=== PATIENT | female | born 1960 | race Caucasian/White ===

== ENCOUNTER → 2020-08-06 13:07 | Outpatient (CLI) | payer OTHER, SELFPAY ==
--- NOTE | ~2020-08-06 | CT_ITS ---
EXAMINATION: CT lumbar spine wo [facility] EXAM DATE: 08/06/2020 13:35 INDICATION: Low back pain. TECHNIQUE: Spiral CT of the lumbar spine was performed without contrast. Axial, coronal and sagittal images were reviewed. The dose-length product (DLP) for this examination was 952.88 mGy-cm. The e xposure was tailored according to patient size (auto mA exposure control), and iterative reconstructi on (ASIR) was used as additional dose reduction technique. There is no prior study for comparison. FINDINGS: There is no spondylolysis. The vertebral bodies are aligned in the AP dimension. Mild diffu se lumbar disc disease. There are no osteoblastic or osteolytic lesions identified. There are no acut e fractures identified. Mild sigmoid diverticulosis. Level by level evaluation: T11-12: Disc does not extend beyond the endplate margin. Facet arthropathy: None. Neural foraminal stenosis: No stenosis. Central canal stenosis: No stenosis. T12-L1: Disc does not extend beyond the endplate margin. Facet arthropathy: Mild. Neural foraminal stenosis: No stenosis. Central canal stenosis: No stenosis. L1-L2: There is a minimal diffuse disc bulge. Facet arthropathy: Mild to moderate. Neural foraminal stenosis: No stenosis. Central canal stenosis: No stenosis. L2-L3: There is a mild diffuse disc bulge. Facet arthropathy: Mild to moderate. Neural foraminal stenosis: No stenosis. Central canal stenosis: No stenosis. L3-L4: There is a mild to moderate diffuse disc bulge. Facet arthropathy: Moderate to severe, mild ligamentum flavum hypertrophy. Neural foraminal stenosis: Mild left. Central canal stenosis: Moderate. L4-L5: There is a mild diffuse disc bulge. Facet arthropathy: Severe right, moderate left. Neural foraminal stenosis: Mild to moderate right, mild left. Central canal stenosis: Mild to moderate. L5-S1: Disc does not extend beyond the endplate margin. Facet arthropathy: Severe left, moderate right. Neural foraminal stenosis: Moderate bilateral. Central canal stenosis: No stenosis. IMPRESSION: 1. Multilevel spondylosis with central canal most narrowed at L3-4. 2. Advanced lower lumbar facet arthropathy. 3. No acute findings. Reviewed, dictated and finalized at location A. LOPMENT VICE PRESIDENT
== END ==
PROVIDERS: PCP Family Medicine; Visit Provider Family Medicine
DX: M47.896 Other spondylosis, lumbar region (principal)
CPT/HCPCS: 72131

== ENCOUNTER → 2021-10-15 15:43 | Outpatient (CLI) | payer OTHER, SELFPAY ==
--- NOTE | ~2021-10-15 | MM_ITS ---
EXAMINATION: MM screening ford BI w amari HISTORY: Screening mammogram TECHNIQUE: Craniocaudal and mediolateral oblique 3-D tomosynthesis images were obtained and synthetic 2-D images were generated. Bilateral rotated lateral CC views. Low CAD analysis was submitted and interpreted. COMPARISON: No prior mammogram is available for comparison at this institution. BREAST PARENCHYMAL COMPOSITION: The breasts are almost entirely fatty. FINDINGS: Scattered bilateral benign calcifications. There is no evidence of suspicious mass, calcifi cation, or architectural distortion to suggest malignancy in either breast. There has been no suspici ous interval change. IMPRESSION: 1. No mammographic evidence of malignancy. 2. Recommend routine screening mammography in one year. Benign Reviewed, dictated and finalized at location A.
== END ==
PROVIDERS: PCP Family Medicine; Visit Provider Family Medicine
DX: Z12.31 Encounter for screening mammogram for malignant neoplasm of breast (principal)
CPT/HCPCS: 77063; 77067

== ENCOUNTER 2022-08-03 14:08 | Emergency (ER) | payer OTHER, SELFPAY ==
--- NOTE | ~2022-08-03 | US_ITS ---
EXAMINATION: US venous doppler [facility] DATE: 08/03/2022 14:59 INDICATION: Left lower limb pain TECHNIQUE: Dykes scale images without and with compression and Doppler images of the left lower extrem ity veins were obtained. COMPARISON: 09/18/2018 FINDINGS: The left common femoral vein, profunda femoral vein, femoral vein, popliteal vein, peroneal trunk, posterior tibial veins, and greater saphenous vein are patent. IMPRESSION: 1. Patent left lower extremity veins. No evidence of deep venous thrombosis. Reviewed, dictated and finalized at location B. DIPPER
[2022-08-03 14:19] VITALS: BP 158/73; PULSE 81; RESP 14; TEMP 36.4; O2SAT 96
[2022-08-03 15:06] VITALS: BP 180/87; PULSE 72; RESP 18; O2SAT 95
--- NOTE | 2022-08-03 15:11 | ED.EXTPRO ---
HPI - Extremity Problem General Chief complaint: Extremity Problem,Nontraumatic Stated complaint: left leg pain Time Seen by Provider: 08/03/22 14:33 Source: patient Mode of arrival: wheelchair Limitations: no limitations History of Present Illness HPI Narrative: This is a 62-year-old female that presents to the emergency department for left knee pain ongoing over the last several months. No recent injury or trauma. Reports the pain is in the knee and radiates down the leg. She has been seen by orthopedics for this and had x-rays of the knee. Told her pain was due to arthritis. Reports history of DVT and she has noticed some swelling in the lower leg which prompted her to be seen today. Denies fevers, erythema, decreased range of motion, or numbness. Related Data Allergies Allergy/AdvReac Type Severity Reaction Status Date / Time acetaminophen AdvReac Unknown Vomiting Verified 08/28/19 12:48 hydrocodone AdvReac Unknown Vomiting Verified 08/28/19 12:48 hydromorphone AdvReac Unknown Vomiting Verified 08/28/19 12:48 Contrast Media Allergy Unknown HIVES Uncoded 08/28/19 12:48 Review of Systems Review of Systems: CONSTITUTIONAL: Denies fever SKIN: Denies rash or erythema MUSCULOSKELETAL: Reports joint pain, and myalgia. NEUROLOGIC: Denies numbness, or weakness. All systems reviewed & are unremarkable except as noted in HPI and below PMFSH Past Medical History Medical History (Updated 08/03/22 @ 15:15 by Nayeli Shah PA-C) History of diabetes mellitus History of gastroesophageal reflux (GERD) History of hypertension Social History Social History (Updated 08/03/22 @ 15:15 by Nayeli Shah PA-C) Substance use: never Exam Narrative: GENERAL: Well-appearing, well-nourished, and in no acute distress. HEAD: Normocephalic, atraumatic. EYES: EOMI. CHEST: Clear to auscultation. No respiratory distress. No wheezes rales or rhonchi HEART: Regular rate and rhythm. No murmur heard. Normal peripheral pulses. EXTREMITIES: Normal range of motion. Mild, nonpitting edema to the left lower leg. Normal DP pulse. Normal sensation. No erythema or warmth of the leg SKIN: Warm, dry, no rash. NEURO: No focal deficits. Alert and oriented x3. PSYCH: Normal mood and affect Course Course Emergency Course: Patient and family updated on workup. Instructed to have continued workup who orthopedics and her PCP Vital Signs Vital signs: Vital Signs Temperature 97.6 F 08/03/22 14:19 Pulse Rate 81 08/03/22 14:19 Respiratory Rate 14 08/03/22 14:19 Blood Pressure 158/73 H 08/03/22 14:19 Pulse Oximetry 96 08/03/22 14:19 Oxygen Delivery Room Air 08/03/22 14:19 Temperature 97.6 F 08/03/22 14:19 Pulse Rate 72 08/03/22 15:06 Respiratory Rate 18 08/03/22 15:06 Blood Pressure 180/87 H 08/03/22 15:06 Pulse Oximetry 95 08/03/22 15:06 Oxygen Delivery Room Air 08/03/22 14:19 MDM - Extremity (Nontraumatic) MDM Narrative Medical decision making narrative: Patient presents to the emergency department for left knee pain radiating into the lower leg ongoing over the last several months. Patient is neurovascularly intact. There is no erythema or warmth of the leg. She is afebrile and nontoxic-appearing. She has normal range of motion. Patient reported history of DVT which prompted her to be seen today. Left lower extremity venous Doppler without evidence of DVT. Patient was instructed to have continued follow-up with her primary doctor and orthopedics. She was given warnings to return to the ER Patient incidentally noted to be hypertensive. Has known history of hypertension and is treated for this. Patient is asymptomatic. Is to follow up with PCP for this as well Imaging Data Radiologist's impression: ITS Impressions Venous Doppler Study 08/03/22 15:01 IMPRESSION: 1. Patent left lower extremity veins. No evidence of deep venous thrombosis. Critical Care Time Crit
== END 2022-08-03 16:10 | disposition home or self-care (01) ==
PROVIDERS: Emergency Provider Physician Assistant; PCP Family Medicine
DX: M25.562 Pain in left knee (principal); G89.29 Other chronic pain; E11.9 Type 2 diabetes mellitus without complications; K21.9 Gastro-esophageal reflux disease without esophagitis; I10 Essential (primary) hypertension
CPT/HCPCS: 93971; 99284

== ENCOUNTER 2022-10-18 14:32 | Outpatient (CLI) | payer MEDICARE, OTHER, SELFPAY ==
[2022-10-18 16:05] LABS: Basophils Absolute Auto 0.1 K/mm3 (0.0-0.1); Eosinophils Absolute Auto 0.3 K/mm3 (0-0.3); Eosinophils Percent Auto 3.5 % (0-4.4); Hematocrit 43.7 % (37.0-47.0); Hemoglobin 14.5 g/dL (12.0-15.0); Immature Granulocyte Absolute 0.13 K/mm3 (0.00-0.031); Immature Granulocyte Percent A 1.4 % (0-0.5); Lymphocytes Absolute Auto 2.77 K/mm3 (0.9-3.2); Lymphocytes Percent Auto 29.4 % (18.3-44.2); Mean Corpuscular HGB Conc 33.2 g/dl (32-36); Mean Corpuscular Hemoglobin 27.7 pg (26-34); Mean Corpuscular Volume 83.6 fl (80-100); Mean Platelet Volume 10.4 fl (7.4-10.4); Monocytes Absolute Auto 0.8 K/mm3 (0.1-0.6); Monocytes Percent Auto 8.9 % (2.6-8.5); Neutrophils Absolute Auto 5.3 K/mm3 (1.3-6.7); Neutrophils Percent Auto 55.8 % (45.5-73.1); Platelet Count Result 274 k/mm3 (150-375); Red Blood Count 5.23 M/mm3 (4.2-5.4); Red Cell Distribution Width 15.2 % (11.5-14.5); White Blood Count 9.4 K/mm3 (4.5-10.0)
[2022-10-18 17:03] LABS: Alanine Aminotransferase 47 U/L (6-35); Albumin Level 4.5 g/dL (3.5-5.1); Alkaline Phosphatase 107 U/L (38-126); Anion Gap 9 mmol/L (8-16); Aspartate Amino Transferase 45 U/L (14-36); Bilirubin,Total 0.7 mg/dL (0.2-1.3); Blood Urea Nitrogen 23 mg/dL (7-17); CRP 1.7 mg/dL (<1.0); Calcium 9.5 mg/dL (8.4-10.2); Carbon Dioxide 27 mmol/L (22-30); Chloride 104 mmol/L (98-107); Estimated Glomerular Filt Rate 50; Glucose 142 mg/dL (65-110); Potassium 4.3 mmol/L (3.4-5.0); Sodium 140 mmol/L (137-145)
[2022-10-18 17:50] LABS: Erythrocyte Sedimentation Rate 14 mm/hr (0-20)
== END 2022-10-18 14:33 | disposition home or self-care (01) ==
LOC: ANHLAB 14:36
PROVIDERS: PCP Family Medicine; Visit Provider Internal Medicine Hematology & Oncology
DX: D72.829 Elevated white blood cell count, unspecified (principal)
CPT/HCPCS: 36415; 80053; 85025; 85652; 86140; 88184; 88185

== ENCOUNTER 2023-01-04 01:08 | Day surgery (SDC) | payer MEDICARE, OTHER, SELFPAY ==
[2022-12-26 13:06] VITALS: BMI 44.4
--- NOTE | 2023-01-03 20:52 | P.HP_ITS ---
History of Present Illness History of Present Illness Consent: Risks, benefits, and alternatives have been discussed and questions answered. Patient agrees to proceed with procedure. Chief complaint: hx of colon polyps Narrative: Simona Oconnor is a 62 year old female who is referred for colon cancer screening. she has had polyps removed in the past. She had 5 polyps at the time of her last colonoscopy 7 years ago. Review of Systems Review of Systems: All systems reviewed & are unremarkable except as noted in HPI and below PMFSH Past Medical History Medical History Generalized osteoarthritis of multiple sites Gout History of diabetes mellitus History of gastroesophageal reflux (GERD) History of hypertension Seropositive rheumatoid arthritis of hand Surgical History Surgical History H/O knee surgery Family History Family History Sibling Alcoholism Hypertension Mother Cancer Diabetes mellitus Hypertension Heart disease Father Diabetes mellitus Hypertension Heart disease Grandparent Diabetes mellitus Heart disease Social History Social History Smoking status: Former smoker Tobacco type: cigarettes Alcohol intake: never Substance use: never Living arrangements: with family Spiritual care concerns: No Meds Home Medications and Allergies Home Medications Medication Instructions Recorded Confirmed Type dulaglutide 0.75 mg/0.5 mL 0.75 mg subcut WEEKLY 09/20/22 01/04/23 History subcutaneous pen injector (Trulicity) escitalopram oxalate 5 mg tablet 20 mg PO DAILY 09/20/22 01/04/23 History (Lexapro) insulin glargine U-300 conc 300 110 unit subcut HS 09/20/22 01/04/23 History unit/mL (3 mL) subcutaneous pen (Toujeo Max U-300 SoloStar) sulindac 150 mg tablet 200 mg PO BID 09/20/22 01/04/23 History lisinopril 20 mg tablet 20 mg PO DAILY 12/27/22 01/04/23 History omeprazole 20 mg tablet,delayed 20 mg PO DAILY 12/27/22 01/04/23 History release Allergies Allergy/AdvReac Type Severity Reaction Status Date / Time iohexol Allergy Hyperactive Verified 01/04/23 10:15 [From contrast - CT, X-RAY] hydrocodone AdvReac Unknown Vomiting Verified 01/04/23 10:15 hydromorphone AdvReac Unknown Vomiting Verified 01/04/23 10:15 Exam Const: General: alert Orientation/consciousness: patient oriented x3 Resp: Auscultation: clear to auscultation bilaterally Cardio: Rhythm: regular rhythm GI: GI Palp: Yes Soft to palpation and No Tenderness to palpation present (GI) Neuro: General: patient oriented x3 Assessment and Plan Assessment and plan (1) Colon cancer screening: Code(s): Z12.11 - Encounter for screening for malignant neoplasm of colon Status: Acute Assessment and Plan: Colonoscopy with possible biopsy or polypectomy or cautery or injection of subst ances.
[2023-01-04 10:15] LABS: Glucose Point of Care 110 mg/dl (65-105)
[2023-01-04 10:16] VITALS: BP 178/88; PULSE 82; RESP 18; TEMP 36.2; O2SAT 94
[2023-01-04] MEDS: LACTATED RINGERS 1,000 ML 150 ML IV CONT (10:18)
--- NOTE | 2023-01-04 10:57 | WPDANESEPPF ---
Anes - Initial Pre Proc Eval Procedure: Operation Date: 01/04/23 11:30 Proposed Procedures p Colonoscopy - Krystian Roman MD Date/Time: 01/04/23 10:57 Surgeon: Krystian Roman MD Pre Op Diagnosis: hx of colon polyps Patient Data Age: 62 Gender: F Height: 1.6 m Weight: 109.7 kg Last Vital Signs Temp 97.2 F L 01/04/23 10:16 Pulse 82 01/04/23 10:16 Resp 18 01/04/23 10:16 BP 178/88 H 01/04/23 10:16 Pulse Ox 94 01/04/23 10:16 O2 Del Method Room Air 01/04/23 10:16 Allergies Allergy/AdvReac Type Severity Reaction Status Date / Time iohexol Allergy Hyperactive Verified 01/04/23 10:15 [From contrast - CT, X-RAY] hydrocodone AdvReac Unknown Vomiting Verified 01/04/23 10:15 hydromorphone AdvReac Unknown Vomiting Verified 01/04/23 10:15 Home Medications Medication Instructions Recorded Confirmed Type dulaglutide 0.75 mg/0.5 mL 0.75 mg subcut WEEKLY 09/20/22 01/04/23 History subcutaneous pen injector (Trulicity) escitalopram oxalate 5 mg tablet 20 mg PO DAILY 09/20/22 01/04/23 History (Lexapro) insulin glargine U-300 conc 300 110 unit subcut HS 09/20/22 01/04/23 History unit/mL (3 mL) subcutaneous pen (Toujeo Max U-300 SoloStar) sulindac 150 mg tablet 200 mg PO BID 09/20/22 01/04/23 History lisinopril 20 mg tablet 20 mg PO DAILY 12/27/22 01/04/23 History omeprazole 20 mg tablet,delayed 20 mg PO DAILY 12/27/22 01/04/23 History release Laboratory Tests 01/04/23 10:10 POC Capillary Glucose 110 H mg/dl (65-105) Patient hx anesthesia problems: none Family hx anesthesia problems: none Results Review: All pre-operative results and documents have been reviewed as part of the pre-operative evaluation. [facility] Past Medical History Medical History Generalized osteoarthritis of multiple sites Gout History of diabetes mellitus History of gastroesophageal reflux (GERD) History of hypertension Seropositive rheumatoid arthritis of hand Surgical History Surgical History H/O knee surgery Family History Family History Sibling Alcoholism Hypertension Mother Cancer Diabetes mellitus Hypertension Heart disease Father Diabetes mellitus Hypertension Heart disease Grandparent Diabetes mellitus Heart disease Social History Social History Smoking status: Former smoker Tobacco type: cigarettes Alcohol intake: never Substance use: never Living arrangements: with family Spiritual care concerns: No Anes - Eval Final PreProcedure Day of Procedure 01/04/23 10:57 Patient weight: morbidly obese Heart: regular rate and rhythm Lungs: clear to auscultation Airway: Mallampati scale class III Neurological: alert and oriented Last oral intake: >/= 8 hours ASA classification: III Emergent: no Anesthetic plan: proceed Anesthesia type and monitoring: general GIVS and standard monitoring Results Review: All pre-operative results and documents have been reviewed as part of the pre-operative evaluation. Informed Consent: The patient's anesthetic plan and its attendant risks and benefits were discussed with the patient/family/POA. Questions were solicited and answers provided to the satisfaction of the patient/family/POA.
[2023-01-04 11:39] VITALS: BP 122/63; PULSE 67; RESP 17; O2SAT 94
[2023-01-04 11:49] VITALS: BP 123/65; PULSE 68; RESP 15; O2SAT 93
[2023-01-04 11:51] LABS: Glucose Point of Care 93 mg/dl (65-105)
[2023-01-04 11:59] VITALS: BP 129/70; PULSE 64; RESP 16; O2SAT 93
== END 2023-01-04 12:10 | disposition home or self-care (01) ==
PROVIDERS: PCP Family Medicine; Visit Provider Internal Medicine Gastroenterology
PROC: 0DJD8ZZ Inspection of Lower Intestinal Tract, Via Natural or Artificial Opening Endoscopic (ICD-10-PCS; CPT 45378; principal; 2023-01-04 11:30)
DX: Z12.11 Encounter for screening for malignant neoplasm of colon (principal); K57.30 Diverticulosis of large intestine without perforation or abscess without bleeding; K64.8 Other hemorrhoids; Z86.010 Personal history of colon polyps; E11.9 Type 2 diabetes mellitus without complications; I10 Essential (primary) hypertension; K21.9 Gastro-esophageal reflux disease without esophagitis; M10.9 Gout, unspecified; M15.9 Polyosteoarthritis, unspecified; M05.8 Other rheumatoid arthritis with rheumatoid factor; Z87.891 Personal history of nicotine dependence; E66.01 Morbid (severe) obesity due to excess calories; Z68.41 Body mass index [BMI] 40.0-44.9, adult; Z79.4 Long term (current) use of insulin
CPT/HCPCS: G0105; 82948; J2704; J7120

== ENCOUNTER 2024-10-04 13:19 | Outpatient (CLI) | payer MEDICARE, OTHER, SELFPAY ==
--- NOTE | ~2024-10-04 | US_ITS ---
EXAMINATION: US thyroid DATE: 10/04/2024 14:30 INDICATION: Hypothyroidism TECHNIQUE: Multiple ultrasound images of the thyroid were obtained. COMPARISON: None. FINDINGS: The right thyroid lobe measures 5.3 x 1.5 x 1.4 cm. Within the mid pole of the right lobe of the thyroid gland is a 6.6 x 4.0 x 6.9 mm nodule: Composition -mixed cystic and solid (1) Echogenicity - hypoechoic (2) Shape - wider than tall Margin - smooth Echogenic foci - none. = TR3 Mildly suspicious Greater than or equal to 1.5 cm: Follow-up Greater than or equal to 2.5 cm: FNA The left thyroid lobe measures 4.9 x 1.9 x 2.2 cm. Within the lower pole of the left lobe of the thyroid gland is a 13 x 10 x 13 mm nodule: Composition -spongiform Echogenicity -isoechoic and hyperechoic (1) Shape - wider than tall Margin - smooth Echogenic foci - none. = TR 1, benign, no FNA, no follow-up The isthmus measures 0.45cm in anterior to posterior dimension. There is otherwise mixed and coarse echotexture throughout the remainder of the thyroid gland. No additional discrete suspicious nodules identified. Normal vascular flow is present. IMPRESSION: TR 3 nodule within the right lobe of the thyroid gland which does not meet size criteria for follow-u p or FNA. TR 1 nodule within the left lobe of the thyroid gland. While yearly follow-up is not recommended, it can be performed. Reviewed, dictated and finalized at location A. IMPRESSION: TR 3 nodule within the right lobe of the thyroid gland which does not meet size criteria for follow-up or FNA. TR 1 nodule within the left lobe of the thyroid gland. While yearly follow-up is not recommended, it can be performed.
--- OUTSIDE RECORDS SUMMARY | 2024-10-04 13:23 | XMS_ITS | Patient Health Record ---
Author Organization [facility] Address [address] [place], [place] [id number] Care Team Providers Care Independent Crop Consultant Name Role Phone Mehran Nails Primary Care Provider Unavailabl e Daphneymartha Alix Unavailable [phone] ALLERGIES Allergen (clinical drug ingredient) Drug/Non Drug Allergy documented on EMR Reaction Allergy Type Onset Date Status etodolac etodolac hard to breathe Drug Allergy A ctive diclofenac Voltaren hard to breathe Drug Allergy Active nabumetone Relafen hard to breathe Drug Allergy Active vicoden (uncoded) throw up Allergy Ac tive hydromorphone dalodid (uncoded) throw up Allergy Active REASON FOR REFERRAL No Information MEDICATIONS Medication SIG (Take, Route, Fr equency, Duration) Notes Start Date End Date Status lisinopril 20 mg 1 tab(s) orally once a day Active Tolectin 600 600 mg 1 tab(s) orally tid 01/07/2010 Active Tresiba FlexTouch 100 units/mL subcutaneously Active sulindac 200 mg 1 tab(s) orally 2 ti mes a day Active Trulicity 7.5 Active oxaprozin 600 mg 2 tab(s) orally once a day 2018 Active Flexall Active Tresiba insulin Acti ve Lexapro 5 mg 2 tab(s) orally once a day Active omeprazole 20 mg 1 cap(s) orally once a day Active SOCIAL HISTORY Sex Assigned At : Social History Observation Description Sex Assigned At Unknown PROBLEMS Problem Type ICD Code Onset Dates Problem Status W/U Status Risk SNOMED Code Notes Problem Osteoarthrosis (715.09) Active confirmed Osteoarthrosis (432887504) Problem MONITOR MED (V58.69) Active confirmed Long-term drug therapy (451198670) Problem Essential hypertension (I10) Active confirmed 23335615 Problem Arthralgia of multiple sites (M25.50) Active confirmed 98522470 Problem Primary generalized (osteo)arthritis (M15.0) Active confirmed Primary generalised osteoarthritis (477449366) Problem 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) Active confirmed 381308541 Problem Rheumatoid factor positive (R76.8) Active confirmed 714083723 Problem Type 2 diabetes mellitus without complications (E11.9) Active confirmed Type II diabete s mellitus without complication (606829079) Problem [facility] (current) use of insulin (Z79.4) Active confirmed Long-term cu rrent use of insulin (681962409) Encounters Encounter Location Date Provider [facility] [address] [place] [address], [address] [place], [place] [phone] 01/09/2024 Alix Perkins PLAN OF TREATMENT Pending Test Test Name Order Date Creatinine, Serum 10/11/2019 Creatinine, Serum 06/18/2019 ALT (SGPT) 10/11/2019 CBC With Differential/Platelet 0 Sed Rate - Westergren 03/06/2020 Sed Rate - Westergren 10/11/2019 Rheumatoid Arthritis Factor 03/06/2020 C-Reactive Protein, Quant 10/11/2019 C-Reactive Protein, Quant 03/06/2020 CCP IgG Antibodies 03/06/2020 Comp. Metabolic Panel (14) 03/06/2020 VITAMIN D, 25-HYDROXY, LC/MS/MS 10/11/19 20 HEMOGLOBIN A1c 03/06/2020 Tendon - flexor tendon 12/14/2022 X ray : Hand left- outside order 019 X ray : Hand right- outside order 2018 Joint Injection - [facility], RIGHT 06/07/2019 Eye exam - Plaquenil 10/11/2019 X ray : Shoulder, right- outside order 0 06/27/2023 Lab slip given 10/11/2019 Lab slip given 03/06/2020 Lab slip given 09/03/2020 DS DNA ANTIBODY, CRITHIDIA, IFA W/REFL Q UEST 12/14/2022 Next Appt Details Provider Name:Alix Perkins, 0 10/16/2024 11:00:00 AM, [address], [address], [place], [place], [id number], Insurance Providers Payer Name Payer Address Payer Phone Subscriber Number Group Number Insured Name Patient Relationship to Insured Coverage Start Date Coverage End Date MEDICARE [address] [address] [place] [phone] [id number] Simona Oconnor Self - patient is the insured 3 [address] [address] [place] [id number] Simona Oconnor Self - patient is the insured 3 MEDICAL (GENERAL) HISTORY Medical History History ICD Code Tension headaches hayfever sinus problems dizziness high blood pressure swelling of ankles/feet indigestion Hot Flashes measeles chicken pox pneumonia bruises easily sores that won't heal diabetes bowel changes constipation hemorrhoids diarrhea emphysema frequent urination Surgical History Surgery Date(Month/Year) hysterectomy 1996 knee surgery 2019 rotational flap 2019 Hospitalization History Reason Date(Month/Year) head injury Arm 1966 Ankle 2001
--- OUTSIDE RECORDS SUMMARY | 2024-10-04 13:23 | XMS_ITS ---
Author Organization [facility] Address [address] [place], [place] [phone] Care Team Providers Care Data Processing Mechanic Name Role Phone Mehran Nails Primary Care Provider Unavailabl Alix Downey Unavailable [phone] REASON FOR VISIT 6 month follow up Encounters Encounter Location Date Provider Diagnosis [facility] [address], [address] [place], [place] [phone] 01/09/2024 Alix Perkins PLAN OF TREATMENT Next Appt Details Provider Name:Alix Perkins, 0 10/16/2024 11:00:00 AM, [address], [address], [place], [place], [id number], History and Physical Notes * HPI (History of Present Illness) Category Sub-Category Detail Notes Rheumatology Joint pain Joint swelling dry eyes dry mouth rash photosensitivity History of gout Psoriasis Oral sores Iritis, conjuctivitis, uveiitis
--- OUTSIDE RECORDS SUMMARY | 2024-10-04 13:23 | XMS_ITS ---
Author Organization [facility] Address [address] [place], [place] [phone] Care Team Providers Care Tile Power Shear Operator Name Role Phone Mehran Nails Primary Care Provider Unavailabl Alix Downey Unavailable [phone] Encounters Encounter Location Date Provider Diagnosis [facility] [address], [address] [place], [place] [id number] 06/28/2023 Alix Perkins PLAN OF TREATMENT Next Appt Details Provider Name:Alix Perkins, 0 10/16/2024 11:00:00 AM, [address], [address], [place], [place], [id number],
--- OUTSIDE RECORDS SUMMARY | 2024-10-04 13:23 | XMS_ITS ---
Author Organization [facility] Address [address] [place], [place] [address] Care Team Providers Care Power Technician Name Role Phone Mehran Nails Primary Care Provider Unavailabl Ailx Downey Unavailable [phone] Encounters Encounter Location Date Provider Diagnosis [facility] [address], [address] [place], [place] [id number] 08/29/2023 Alix Perkins PLAN OF TREATMENT Next Appt Details Provider Name:Alix Perkins, 0 10/16/2024 11:00:00 AM, [address], [address], [place], [place], [id number],
--- OUTSIDE RECORDS SUMMARY | 2024-10-04 13:23 | XMS_ITS | Clinical Summary ---
Author Organization [facility] Kiley Macario Address [address] [place] [address] [place] [address] Care Team Providers Care Strategic Account Director Name Role Phone Russ Cantu MD Primary Care Provider [phone] Allergies No known active allergies Medications allopurinoL (ZYLOPRIM) 100 mg tablet Take 100 mg by mouth daily. 3 Active escitalopram oxalate (LEXAPRO) 20 mg tablet Take 20 mg by mouth daily at bedtime. Active insulin glargine U-300 conc (Toujeo Max U-300 SoloStar) 300 unit/mL (3 mL) Insulin Pen INJECT 100 UNITS SUBCUTANEOUSLY ONCE DAILY 1 Active dulaglutide (Trulicity) 1.5 mg/0.5 mL injection Inject 4 mg by subcutaneous injection. Active lisinopriL (PRINIVIL) 20 mg tablet Take 20 mg by mouth daily. Active sulindac (CLINORIL) 200 mg Tablet Take 200 mg by mouth 2 times daily with meals. Active Active Problems No known active problems Family History Medical History Relation Name Comments Diabetes Father Heart Disease Father Stroke Father Breast Cancer Mother Diabetes Mother Heart Disease Mother Kidney Disease Mother Aortic aneurysm Sister 2 Spina bifida Son 1 Relation Name Status Comments Brother Father Mother Sister 1 Alive Sister 2 Alive Son 1 Alive Son 2 Alive Social History Tobacco Use Types Packs/Day Years Used Date Smoking Tobacco: Former Cigarettes Q uit: 2009 Tobacco Cessation:Counseling Given: Not Answered Alcohol Use Standard Drinks/Week Comments Never 0 (1 standard drink = 0.6 oz pur e alcohol) Comments Unknown Sex and Gender Information Value Date Recorded Sex Assigned at Not on file Legal Sex Female 10:14 AM SKETCH ARTIST Gender Identity Not on file Sexual Orientation Not on file Last Filed Vital Signs Vital Sign Reading Time Taken Comments Blood Pressure 150/78 10/18/2022 1:48 PM CDT Pulse 78 10/18/2022 1:31 PM CDT Temperature 36.7 C (98 F) 10/18/2022 1:31 PM CDT Respiratory Rate 12 10/18/2022 1:31 PM CDT Oxygen Saturation 97% 10/18/2022 1:31 PM CDT Inhaled Oxygen Concentration - - Weight 117 kg (258 lb) 10/18/2022 1:31 PM CDT Height - - Body Mass Index - - Plan of Treatment Health Maintenance Due Date Last Done Comments DIABETES ANNUAL FOOT EXAM 1976 DIABETES MICROALBUMIN ANNUAL SCREEN 1976 LDL CHOLESTEROL ANNUAL 1976 DTAP/TDAP/TD VACCINES (1 - Tdap) 1977 PNEUMOCOCCAL VACCINE 50+ YEARS (1 of 2 - PCV) 06/03/19 77 BREAST CANCER SCREENING 1998 FIT-DNA Q 3 years 2003 FIT/FOBT Q 1 year 2003 Flex Sig/CT Colonography Q 5 years 2003 ZOSTER VACCINE (1 of 2) 2008 RSV VACCINE (60+ or ) (1 - Risk 60-74 years 1-dose series) 2018 DIABETES HBA1C Q 6 MONTHS 09/08/2020 03/11/2020 OSTEOPOROSIS SCREENING 2023 INFLUENZA VACCINE (#1) 2024 DIABETES ANNUAL RETINAL EXAM 08/16/2024 08/17/2023 COLORECTAL SCREENING 01/04/2033 01/04/2023 Colorectal Cancer Screening 01/04/2033 Insurance MEDICARE PART A AND B Care Teams Strategic Account Director Relationship Specialty Start Date End Date Russ Cantu MD PCP - General Family Practice 10/18/22
== END 2024-10-04 13:20 | disposition home or self-care (01) ==
PROVIDERS: PCP Family Medicine; Visit Provider Physician Assistant
DX: E04.2 Nontoxic multinodular goiter (principal); E03.9 Hypothyroidism, unspecified
CPT/HCPCS: 76536

== ENCOUNTER 2025-04-23 13:52 | Outpatient (CLI) | payer MEDICARE, OTHER, SELFPAY ==
--- OUTSIDE RECORDS SUMMARY | 2025-04-24 13:20 | XMS_ITS | Clinical Summary ---
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
[2025-04-25 12:08] LABS: ANA by IFA Rfx Titer/Pattern Negative (.)
== END 2025-04-23 13:53 | disposition home or self-care (01) ==
LOC: ANHGOSHLAB 13:54
PROVIDERS: Visit Provider Otolaryngology
DX: M35.00 Sjogren syndrome, unspecified (principal)
CPT/HCPCS: 86038

== ENCOUNTER 2025-05-01 12:44 | Outpatient (CLI) | payer MEDICARE, OTHER, SELFPAY ==
--- OUTSIDE RECORDS SUMMARY | 2025-05-01 13:17 | XMS_ITS | Clinical Summary ---
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
[2025-05-01 19:21] LABS: Iron 55 ug/dL (37-170)
[2025-05-01 19:24] LABS: CRP 0.9 mg/dL (<1.0)
[2025-05-01 19:36] LABS: Percent Iron Saturation 18 % (20-50)
[2025-05-01 20:02] LABS: Ferritin 87.20 ng/mL (11.1-264)
[2025-05-01 20:53] LABS: Vitamin B12 856.0 pg/mL (239-931)
== END 2025-05-01 12:45 | disposition home or self-care (01) ==
LOC: ANHGOSHLAB 12:46
PROVIDERS: PCP Internal Medicine; Visit Provider Nurse Practitioner
DX: R11.2 Nausea with vomiting, unspecified (principal); R19.7 Diarrhea, unspecified; R53.83 Other fatigue; A08.39 Other viral enteritis; U07.1 COVID-19
CPT/HCPCS: 36415; 82607; 82728; 83540; 83550; 85652; 86140

== ENCOUNTER 2025-05-01 15:18 | Outpatient (CLI) | payer MEDICARE, OTHER, SELFPAY ==
--- OUTSIDE RECORDS SUMMARY | 2025-05-01 15:21 | XMS_ITS | Clinical Summary ---
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
--- OUTSIDE RECORDS SUMMARY | 2025-05-01 15:22 | XMS_ITS | Data Portability ---
Author Organization [place] - [facility] [employer], Main Office Address [address] [place] [address] Care Team Providers Care Commission Agent Livestock Name Role Phone ARVIN CHOPRA Primary Care Provider [phone] LINDA RAMIREZ Title Camera Operator Assessment No assessment recorded. Plan of Treatment Reminders Order Date Submit Date Provider Last Modified By Organization Details Last Modified Time Details Appointments None recorded. Lab glycohemog lobin, total, blood [address] (Lab), [address] [place], [address], 5 10:37:03 lipid panel, serum [address] (Lab), [address] [place], [address], 5 10:37:04 CBC w/ auto diff [address] (Lab), [address] [place], [address], 5 10:37:04 CMP, serum or plasma [address] (Lab), [address] [place], [address], 5 10:37:04 CK (creatine kinase), total, serum [address] (Lab), [address] [place], [address], 5 10:37:04 TSH, serum or plasma [address] (Lab), [address] [place], [address], 10:37:03 T4, free, serum [address] (Lab), [address] [place], [address], 10:37:03 estradiol, serum [address] (Lab), [address] [place], [address], 13:00:13 FSH (follicle- stimulatin g hormone), serum [address] (Lab), [address] [place], [address], 13:00:13 lh (luteinizi ng hormone), serum [address] (Lab), [address] [place], [address], 5 13:00:13 unlisted lab - testostero ne (women/chi ldren) [address] (Lab), [address] [place], [address], 13:00:13 progestero ne, serum [address] (Lab), [address] [place], [address], 13:00:14 testostero ne, free + total, serum 2024 [email or web address] [facility] ([facility] [address], [place], [address], 13:00:14 Referral None recorded. Procedures None recorded. Surgeries None recorded. Imaging MAMMO, screening, digital, bilateral [address] [facility], [address], [place], [address], 14:24:34 US, thyroid [address], [address], [place], [address], 14:24:34 Medication Orders triamcinol one acetonide 0.1 % dental paste 2024 [facility] [place], [address], 5 15:36:55 prednisone 20 mg tablet 2024 025 [facility] [address] [place], [address], 5 15:37:19 amoxicilli n 875 mg-potassi um clavulanat e 125 mg tablet 2024 025 [facility] [address], [address] [place], [address], 5 15:44:04 levothyrox ine 25 mcg tablet 2024 025 [facility], [address], [place], [address], 5 20:17:50 colchicine 0.6 mg tablet 2024 025 [facility] [address], [address] [place], [address], 5 15:35:34 allopurino l 100 mg tablet 2024 025 [facility] [address], [place], [address], 20:20:26 allopurino l 100 mg tablet 2024 025 [facility] [address] [place], [address], 5 15:37:05 escitalopr am 20 mg tablet 2024 025 [facility] [address] [place], [address], 5 15:32:58 levothyrox ine 25 mcg tablet 2024 025 [facility] [address] [place], [address], 5 11:27:53 Vraylar 3 mg capsule 2024 025 [email or web address], [address], [place], [address], 5 15:14:55 Patient TargetsNo targets recorded. Patient Instructions Encounter Date Encounter Id Patient Instructions Last Modified By Organization Details Last Modified Time 09/10/2024 [id number] vraylar samples , 21 tabs , 1.5 mg.. let's try a low dose levothyroxine , see if that gives her some energy remy Not available 09/16/2024 16:52:06 Reason for Referral None Reported. Results Created Date Observation Date Name Description Value Unit Range Abnormal Flag Note LastModifiedBy Organization Detail LastModifiedTime 10/05/1910/04/2024 US, thyro id No observ ation record ed. [email or web address] [facility] [address] [facility] [address], [place], [address], 01/30/2025 14:52:11 Result Notes None recorded. Problems Name Problem SNOMED Code Status Onset Date Resolution Date Notes Provider Name and Address Organization Details Recorded Time Acute bronchitis 37264632 Active Not Available [facility] 3 13:30:53 Disorder of shoulder 838122489 Active Not Available [facility] 3 13:30:54 Folliculit is 54087442 Active Not Available [facility] 3 13:30:54 Herpes labialis 0333007 Active Not Available [facility] 3 13:30:54 Acute sinusitis 55812724 Active Not Available [facility] 3 13:30:54 Abdominal pain 40726353 Active Not Available [facility] 3 13:30:54 Dyspnea 440651315 Active Not Available [facility] 3 13:30:54 Shoulder joint pain 603985562 Active Not Available [facility] 3 13:30:54 Wax in ear canal 151995412 Active Not Available [facility] 3 13:30:54 Chronic low back pain 038447879 Active Not Available [facility] 3 13:30:54 Pain in left arm 239978466 Active Not Available [facility] 3 13:30:54 Knee pain Active Not Available [facility] 3 13:30:54 Type 2 diabetes mellitus without complicati on 259385216 Active Not Available [facility] 3 13:30:54 Depressive disorder 92717946 Active Not Available [facility] 3 13:30:54 Chronic arthritis 57638784 Active Not Available [facility] 3 13:30:54 Sinusitis 52346265 Active Not Available [facility] 3 13:30:54 Arthritis 1621733 Active Not Available [facility] 3 13:30:55 Hypertensi ve disorder 41453540 Active Not Available [facility] 3 13:30:55 Neuropathy 163532409 Active Not Available [facility] 3 13:30:55 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 Not Available [facility] 3 13:30:55 Primary herpes simplex infection of lips 591028202 Active Not Available [facility] 3 13:30:55 Type 2 diabetes mellitus 60688943 Active Not Available [facility] 3 13:30:55 Viral syndrome 035428915 Active Not Available [facility] 3 13:30:55 Pain of shoulder region 78805412 Active Not Available [facility] 3 13:30:55 Upper respirator y infection 69935715 Active Not Available [facility] 3 13:30:55 Essential hypertensi on 21546649 Active Not Available [facility] 3 13:30:55 Diabetes mellitus 01450288 Active Not Available [facility] 3 13:30:55 Edematous skin 95698455 Active Not Available [facility] 3 13:30:55 Mixed anxiety and depressive disorder 210612428 Active 2022 Russ Cantu MD [address], [place], [address] , [employer] 3 15:13:12 Osteoarthr itis 825807872 Active 2022 Russ Cantu MD [address], [place], [address] , Known [employer] 3 15:13:56 Uncontroll ed type 2 diabetes mellitus 032838716 Active 2022 Russ Cantu MD [address], [place], [address] , Known [employer] 3 14:20:16 Obesity 353860936 Active 2022 Russ Cantu MD [address], [place], [address] , [employer] [facility] 3 14:21:28 Pain of right shoulder joint 7054536530983 9100 Active 2022 Russ Cantu MD [address], [address], [place], [address] , [employer] [facility] 3 12:06:36 Pain in left lower limb 993774778 Active 2022 Russ Cantu MD [address], [address], [place], [address] , [employer] [facility] 3 12:07:12 Abnormal urine odor 5050279 Active 2022 Russ Cantu MD [address], [address], [place], [address] , [employer] 3 12:07:54 Gastroesop hageal reflux disease 424641728 Active 2023 [employer] [address], [place], [address] , [employer] 4 12:16:31 Bilateral osteoarthr itis of knees 7565010740869 07 Active 2023 [employer] [address], [address], [place], [address] , [employer] [facility] 4 23:03:40 Strain of muscle of right shoulder 0690168903372 9105 Active 2023 [employer] [facility] [address], [address], [place], [address] , [employer] [facility] 4 14:16:55 Ex-cigaret te smoker 284332179 Active 2023 [employer] [address], [address], [place], [address] , [employer] 4 15:47:27 At increased risk of nutritiona l deficit 645927208 Active 2023 [employer] [address], [address], [place], [address] , [employer] 4 16:27:23 Hyperlipid emia 21766136 Active 2023 [employer] [facility] [address], [place], [address] , [employer] [facility] [employer] [facility] 4 11:44:46 Traumatic tear of right supraspina tus tendon Active 2023 [employer] [facility] [address], [place], [address] , [employer] [facility] 4 10:02:23 Hypothyroi dism 73848991 Active 2024 [employer] [address], [place], [address] , [employer] [facility] [email or web address] [facility] 5 14:40:38 Screening mammograph y Active 2024 [employer] [address], [place], [address] , [employer] [facility] 5 11:33:34 Fatigue 26905494 Active 2024 [employer] [address], [place], [address] , [employer] [facility] 5 16:52:34 History of gout 611181600 Active 2024 [employer] [address], [place], [address] , [employer] [facility] [email or web address] [facility] 5 15:30:46 Candidiasi s of vagina 73349167 Active 2024 [employer] [address], [place], [address] , [employer] [facility] 5 12:02:23 Aphthous ulcer of mouth 893609015 Active 2024 [employer] [address], [place], [address] , [employer] [facility] [email or web address] [facility] 5 15:35:51 Notes:quit tobacco from 4 pa cks per day in 2009 Problem Notes None recorded. Procedures Surgical History Date Name Laterality Status Provider Name and Address Organization Details Recorded Time 05/09/20 24 Medicare Wellness CPT Code, subsequent completed Juliana Nuñez RN [facility] [employer] [facility] 05/08/2024 15:45:01 01/31/20 24 Chronic care management services completed Linda Ramirez RN [facility] [employer] [facility] 01/31/2024 17:35:07 10/03/19 24 extraction of cataract completed Bhavana Carrasquillo RN [facility] [employer] [facility] 10/10/2023 14:01:50 10/16/19 22 mammography completed Not Available [facility] 08/18/19 13:29:51 10/30/19 16 Colonoscopy completed Not Available [facility] 08/18/19 13:29:51 03/16/20 09 bone density scan completed Not Available [facility] 08/17/2022 13:29:51 Imaging Results None recorded. Procedure Notes None recorded. Medical Equipment None Reported. Allergies No known drug allergies Medications Name Sig Start Date Stop Date Status Note LastModified by Organization Details LastModified Time cyclobenz aprine 10 mg tablet 02/26 completed Not Available Not Available Not Available dicloxaci llin 500 mg capsule 02/26 completed Not Available Not Available Not Available Percocet 7.5 mg-325 mg tablet 1-2 tabs po Q4-6 hours as needed 09/19 completed Not Available Not Available Not Available prednison e 10 mg tablet Take 3 tablets every day by oral route for 5 days. 01/06 completed Not Available Not Available Not Available venlafaxi ne ER 75 mg capsule,e xtended release 24 hr TAKE ONE CAPSULE BY MOUTH ONCE DAILY active Not Available Not Available No t Available doxycycli ne hyclate 100 mg capsule 02/26 completed Not Available Not Available Not Available niacin ER 1,000 mg tablet,ex tended release 24 hr active Not Available Not Available Not Available lisinopri l 20 mg-hydroc hlorothia zide 12.5 mg tablet TAKE 1 TABLET BY MOUTH ONCE DAILY 09/29 completed Not Available Not Available Not Available azithromy braxton 250 mg tablet TAKE 2 TABLETS BY MOUTH ON DAY 1, AND THEN TAKE 1 TABLET BY MOUTH ONCE A DAY ON DAY 2 THROUGH DAY 5 12/29 completed Not Available Not Available Not Available Lidocaine Viscous 2 % mucosal solution active Not Available Not Available Not Available fluconazo le 150 mg tablet Take 1 tablet every day by oral route. 2024 active Not Available Not Available Not Avai lable citalopra m 10 mg tablet Take 1 tablet every day by oral route. active Not Available Not Available No t Available hydrocodo ne 5 mg-acetam inophen 325 mg tablet Take 1 tablet every 4-6 hours by oral route as needed for 10 days. 06/25 completed Not Available Not Available Not Available flurbipro fen 0.03 % eye drops PLEASE SEE ATTACHED FOR DETAILED DIRECTIO NS 05/09 completed Not Available Not Available Not Available fluconazo le 200 mg tablet 02/26 completed Not Available Not Available Not Available Effexor XR 37.5 mg capsule,e xtended release Take 1 capsule every day by oral route for 90 days. active Not Available Not Available No t Available lisinopri l 20 mg tablet TAKE ONE TABLET BY MOUTH ONCE DAILY 10/09 completed dose adjustme nt Not Available Not Available Not Available prednison e 20 mg tablet Take 2 tabs PO twice daily for 2 days; 1 tab PO twice daily for 5 days; 1/2 tab PO twice daily for 2 days; 1/2 tab PO once for 1 day. TAKE 2ND DOSE EVERYDAY AT NOON-10 DAY COURSE 2024 active Not Available Not Available Not Avai lable prednison e 5 mg tablet TAKE 2 TABLETS BY MOUTH ONCE DAILY FOR 7 DAYS THEN 1 TABLET ONCE DAILY FOR 7 DAYS 11/28 completed Not Available Not Available Not Available metronida zole 500 mg tablet TAKE 1 TABLET BY MOUTH 3 TIMES A DAY FOR 28 DAYS 02/26 completed Not Available Not Available Not Available ciproflox acin 250 mg tablet TAKE 1 TABLET BY MOUTH ONCE DAILY 04/11 completed Not Available Not Available Not Available amlodipin e 5 mg tablet Take 1 tablet every day by oral route in the morning for 30 days. 06/06 completed Not Available Not Available Not Available allopurin ol 100 mg tablet Take 1 tablet every day by oral route at bedtime for 30 days. 04/22/ 2025 active Not Available Not Available Not Avai lable ciproflox acin 500 mg tablet Take 1 tablet every 12 hours by oral route for 10 days. 06/06 completed Not Available Not Available Not Available sulfameth oxazole 800 mg-trimet hoprim 160 mg tablet TAKE 1 TABLET BY MOUTH TWICE DAILY 05/09 completed Not Available Not Available Not Available tramadol 50 mg tablet Take 1 tablet 3 times a day by oral route as needed for 30 days. 2023 active Not Available Not Available Not Avai lable glimepiri de 2 mg tablet active Not Available Not Available Not Available Depo-Medr ol 80 mg/mL suspensio n for injection Take 1 mL by injectio n route. 2023 active Not Available Not Available Not Avai lable levothyro xine 25 mcg tablet Take 1 tablet every day by oral route in the morning for 90 days. 2024 active Not Available Not Available Not Avai lable Kenalog 40 mg/mL suspensio n for injection Take 40 mg every day by injectio n route for 1 day. 06/25 completed Not Available Not Available Not Available Nitro-Bid 2 % transderm al ointment 05/23 completed Not Available Not Available Not Available oxycodone -acetamin ophen 5 mg-325 mg tablet TAKE 1 TABLET BY MOUTH EVERY 6 HOURS NEEDED FOR PAIN . DO NOT EXCEED 4 PER 24 HOURS 07/04 completed Not Available Not Available Not Available prednisol one acetate 1 % eye drops,jimmy pension INSTILL 1 DROP INTO AFFECTED EYE(S) 3 TIMES DAILY STARTING AFTER SURGERY AND CONTINUI NG FOR 3 WEEKS 05/09 completed Not Available Not Available Not Available triamcino lone acetonide 0.1 % dental paste Take 1 applicat ion 5 times a day by dental route for 30 days. 2024 active Not Available Not Available Not Avai lable dicyclomi ne 20 mg tablet 02/26 completed Not Available Not Available Not Available Xylocaine 10 mg/mL (1 %) injection solution Take 20 mg every day by injectio n route for 1 day. 06/25 completed Not Available Not Available Not Available ciproflox acin 0.3 % eye drops INSTILL 1 DROP THREE TIMES DAILY INTO SURGICAL EYE BEGINNIN G 2 DAYS BEFORE SURGERY AND CONTINUI NG FOR 1 WEEK AFTER 10/09 completed Not Available Not Available Not Available amlodipin e 10 mg tablet Take 1 tablet every day by oral route for 90 days. 2023 active Not Available Not Available Not Avai lable benzonata te 100 mg capsule active Not Available Not Available Not Available cephalexi n 500 mg capsule TAKE 1 CAPSULE BY MOUTH 4 TIMES DAILY 05/09 completed Not Available Not Available Not Available hydrocort isone 100 mg/60 mL enema 02/26 completed Not Available Not Available Not Available Valtrex 1 gram tablet Take 2 tablets every 12 hours by oral route for 1 day. 11/28 completed Not Available Not Available Not Available omeprazol e 20 mg capsule,d elayed release TAKE ONE CAPSULE BY MOUTH EVERY DAY 30 MINUTES BEFORE FOOD active Not Available Not Available No t Available diclofena c sodium 75 mg tablet,de layed release TAKE ONE TABLET BY MOUTH TWICE DAILY 06/25 completed Not Available Not Available Not Available etodolac 400 mg tablet TAKE 1 TABLET BY MOUTH TWICE DAILY 09/29 completed Not Available Not Available Not Available mupirocin 2 % topical ointment APPLY OINTMENT TOPICALL Y TWICE DAILY active Not Available Not Available No t Available Levaquin 500 mg tablet Take 1 tablet every 24 hours by oral route for 10 days. 09/27 completed Not Available Not Available Not Available gabapenti n 100 mg capsule TAKE 1 CAPSULE BY MOUTH THREE TIMES DAILY active Not Available Not Available No t Available oxaprozin 600 mg tablet Take 2 tablets every day by oral route. 05/23 completed Not Available Not Available Not Available Anusol-HC 25 mg rectal supposito ry Insert 1 supposit ory twice a day by rectal route for 14 days. 06/25 completed Not Available Not Available Not Available methylpre dnisolone 4 mg tablets in a dose pack Take by oral routeas directed 02/26 completed Not Available Not Available Not Available albuterol sulfate HFA 90 mcg/actua tion aerosol inhaler Inhale 2 puffs every 4 hours by inhalati on route as needed. active Not Available Not Available No t Available colchicin e 0.6 mg tablet 2 tabs initiall y the 1 tab in 1 hour. 2024 active Not Available Not Available Not Avai lable lisinopri l 40 mg tablet Take 1 tablet every day by oral route for 90 days. 10/09 completed switched to losartan Not Available Not Available Not Available ondansetr on 4 mg disintegr ating tablet DISSOLVE 1 TABLET IN MOUTH EVERY 4 TO 6 HOURS NEEDED FOR NAUSEA 05/09 completed Not Available Not Available Not Available losartan 100 mg tablet Take 1 tablet every day by oral route in the morning for 90 days. 2023 active 90 days at a time Not Available Not Available Not Available sulindac 200 mg tablet TAKE 1 TABLET BY MOUTH TWICE DAILY 2023 active Not Available Not Available Not Avai lable naproxen 500 mg tablet TAKE 1 TABLET BY MOUTH TWICE DAILY FOR 30 DAYS 10/12 completed Not Available Not Available Not Available spironola ctone 50 mg tablet Take 1 tablet every day by oral route. active Not Available Not Available No t Available amoxicill in 875 mg-potass ium clavulana te 125 mg tablet Take 1 tablet every 12 hours by oral route for 10 days. 2024 active Not Available Not Available Not Avai lable enoxapari n 40 mg/0.4 mL subcutane ous syringe 05/23 completed Not Available Not Available Not Available escitalop emi 20 mg tablet TAKE ONE TABLET BY MOUTH EVERY DAY 2024 active Not Available Not Available Not Avai lable Lexapro 10 mg tablet Take 1 tablet every day by oral route. active Not Available Not Available No t Available ezetimibe 10 mg tablet Take 1 tablet every day by oral route at noon for 90 days. 2024 active Not Available Not Available Not Avai lable Novolog FlexPen U-100 Insulin aspart 100 unit/mL (3 mL) subcutane ous Inject 5 units 3 times a day by subcutan eous route before meals. 2013 active Not Available Not Available Not Avai lable cyclobenz aprine 5 mg tablet TAKE 1 TABLET BY MOUTH THREE TIMES DAILY NEEDED active Not Available Not Available No t Available metoprolo l tartrate 25 mg tablet Take 1 tablet twice a day by oral route for 90 days. 2024 active Not Available Not Available Not Avai lable fenofibra te 160 mg tablet Take 1 tablet every day by oral route in the morning for 90 days, for to lower triglyce rides. 10/08 completed she refuses to take a med , she did not fast for this Not Available Not Available Not Available pregabali n 75 mg capsule TAKE 1 CAPSULE BY MOUTH TWICE DAILY 10/12 completed Not Available Not Available Not Available aripipraz ole 2 mg tablet Take 1 tablet every day by oral route. active Not Available Not Available No t Available FreeStyle Lite Strips tests qid active Not Available Not Available No t Available Lantus Solostar U-100 Insulin 100 unit/mL (3 mL) subcutane ous pen 70 units Q HS active Not Available Not Available No t Available Humalog KwikPen (U-100) Insulin 100 unit/mL subcutane ous inject 20 units SQ tid with meals 08/03 completed using up to 35 units to try to keep bs under 150 Not Available Not Available Not Available omeprazol e 20 mg tablet,de layed release Take 1 tablet every day by oral route. active Not Available Not Available No t Available oxycodone 10 mg tablet 12/26 completed Not Available Not Available Not Available BD Ultra-Fin e Mitali Pen Needle 32 gauge x /32 USE DIRECTED WITH THE TRESIBA 10/12 completed Not Available Not Available Not Available niacin ER 1,000 mg tablet,ex tended release Take 1 tablet twice a day by oral route. active Not Available Not Available No t Available Xarelto 15 mg tablet active Not Available Not Available Not Available Xarelto 20 mg tablet 05/23 completed Not Available Not Available Not Available Dexcom G5-G4 Sensor device 09/27 completed Not Available Not Available Not Available Zorvolex 35 mg capsule Take 1 capsule 3 times a day by oral route. 10/12 completed Not Available Not Available Not Available Farxiga 5 mg tablet Take 1 tablet every day by oral route. 2013 active Not Available Not Available Not Avai lable Levemir FlexTouch U-100 Insulin 100 unit/mL (3 mL) subcutane ous pen Inject 75 units every day by subcutan eous route. 08/15 completed Not Available Not Available Not Available Trulicity 1.5 mg/0.5 mL subcutane ous pen injector INJECT 1 & 1/2 (ONE & ONE-HALF ) MG SUBCUTAN EOUSLY ONCE A WEEK active Not Available Not Available No t Available Trulicity 0.75 mg/0.5 mL subcutane ous pen injector INJECT ONE HALF ML SUBCUTAN EOUSLY ONCE A WEEK active Not Available Not Available No t Available Dexcom G5 It Risk Analyst 09/27 completed Not Available Not Available Not Available Dexcom G5 Transmitt er device 09/27 completed Not Available Not Available Not Available Tresiba FlexTouch U-200 insulin 200 unit/mL (3 mL) subcutane ous pen INJECT 100 UNITS SUBCUTAN EOUSLY ONCE DAILY 07/31 completed Not Available Not Available Not Available Tresiba FlexTouch U-100 inject 75 units daily 09/19 completed Not Available Not Available Not Available Vraylar 3 mg capsule Take 1 capsule every day by oral route for 30 days. 10/08 completed Not Available Not Available Not Available BD Ultra-Fin e Micro Pen Needle 32 gauge x 1/4 USE DIRECTED WITH THE TRESIBA 10/12 completed Not Available Not Available Not Available Toujeo Max U-300 SoloStar 300 unit/mL (3 mL) subcutane ous insulin pen INJECT 110 UNITS SUBCUTAN EOUSLY ONCE DAILY 07/04 completed Not Available Not Available Not Available Afluria Qd 2019-20 (36 mos up)(PF)60 mcg (15 mcg x4)/0.5 mL IM syringe 05/23 completed Not Available Not Available Not Available Trulicity 3 mg/0.5 mL subcutane ous pen injector INJECT 3 MG SUBCUTAN EOUSLY ONCE A WEEK 09/29 completed Not Available Not Available Not Available Trulicity 4.5 mg/0.5 mL subcutane ous pen injector Inject 4.5 mg every week by subcutan eous route. 2023 active takes either this or Ozempic dependin g on insuranc e ability to get drug Not Available Not Available Not Available Ozempic 1 mg/dose (4 mg/3 mL) subcutane ous pen injector Inject 1 mg every week by subcutan eous route for 28 days. 05/09 completed taking this dose currentl y 01/31/24. Uses Trulicit y if cannot get this. Not Available Not Available Not Available Ozempic 0.25 mg or 0.5 mg (2 mg/3 mL) subcutane ous pen injector Inject 0.5 mg every week by subcutan eous route as directed for 28 days. 05/09 completed Not Available Not Available Not Available Vitals Date Recorded Body height Body mass index (BMI) Body weight Body temperature Heart rate Oxygen saturation Oxygen saturation in Arterial blood by Pulse oximetry Systolic And Diastolic Provider Name and Address Organization Details Last Updated DateTime 5 160.02 cm 38.6 kg/m2 84057.1 4 g 97.7 [degF] 94 /min 97 % 97 % 132/84 mm[Hg] Lelo York RN [facility] 11:17:24 Date Recorded Body weight Body mass index (BMI) Body height Body temperature Systolic And Diastolic Provider Name and Address Organization Details Last Updated DateTime 10/08/2024 39896.32 g 39 kg/m2 160.02 cm 97.8 [degF] 140/78 mm[Hg] Diya Paniagua Winter [facility] 5 15:20:14 Date Recorded Body height Body mass index (BMI) Body weight Body temperature Oxygen saturation Oxygen saturation in Arterial blood by Pulse oximetry Heart rate Systolic And Diastolic Provider Name and Address Organization Details Last Updated DateTime 5 160.02 cm 37.9 kg/m2 25206.7 7 g 97.6 [degF] 95 % 95 % 64 /min 122/72 mm[Hg] Diya Paniagua Winter [facility] 15:15:28 Social History Question Answer Notes LastModified by Organization Details LastModified Time Tobacco Smoking Status Former Smoker Not Available [facility] 08/17/2022 13:29:44 Do You Have An Advance Directive? No Information not available 01/31/2024 Are You Blind Or Do You Have Difficulty Seeing? No Had Cataract Surgery On Both Eyes Recently September And October Information not available 01/31/2024 Is Blood Transfusion Acceptable In An Emergency? Yes Information not available 01/31/2024 What Is Your Level Of Caffeine Consumption? Moderate Iced Tea [id number] Information not available 08/17/2022 What Is Your Code Status? Full Code Information not available 01/31/2024 In The 14 Days Before Symptom Onset, Have You Had Close Contact With A Laboratory-conf irmed COVID-19 While That Case Was Ill? No Information not available 01/31/2024 In The 14 Days Before Symptom Onset, Have You Had Close Contact With A Person Who Is Under Investigation For COVID-19 While That Person Was Ill? No Information not available 01/31/2024 Are You Deaf Or Do You Have Serious Difficulty Hearing? No Information not available 01/31/2024 What Type Of Diet Are You Following? REGULAR [id number] Information not available 08/17/2022 What Is The Highest Grade Or Level Of School You Have Completed Or The Highest Degree You Have Received? [id number] Information not available 01/31/2024 How Many Days Of Moderate To Strenuous Exercise, Like A Brisk Walk, Did You Do In The Last 7 Days? 0 I Have A Cane And Can Do Walking On Level Ground. Information not available 01/31/2024 Have There Been Any Changes To Your Family Or Social Situation? Yes Having Social Problems At Home Information not available 01/31/2024 What Is The Fluoride Status Of Your Home? Fluoridated Information not available 01/31/2024 When Did You Quit Smoking? 11-15yearssincelas tcigarette [id number] Information not available 08/17/2022 Are There Any Guns Present In Your Home? Yes Information not available 01/31/2024 Do You Use Insect Repellent Routinely? No Only Outside Long Enough To Get In And Out Of Car Information not available 01/31/2024 Where Do You Live? SingleLevelHouse Information not available 01/31/2024 Do You Have A Medical Power Of Systems Qa Analyst? No Information not available 01/31/2024 How Many Children Do You Have? 2 Information not available 01/31/2024 Do You Have Any Pets? Yes 3 Dogs Information not available 01/31/2024 What Is Your Relationship Status? Information not available 01/31/2024 Do You Use Your Seat Belt Or Car Seat Routinely? Yes Information not available 01/31/2024 Are You Sexually Active? Yes Information not available 01/31/2024 Do You Have Smoke And Carbon Monoxide Detectors In Your Home? Yes Smoke Detectors In Home Working But On The Table Due To Reconstruct , Will Get Back Up Soon Information not available 01/31/2024 Are You Passively Exposed To Smoke? No Information not available 01/31/2024 Are There Any Smokers In Your House? No Information not available 01/31/2024 Do You Use Sunscreen Routinely? No Information not available 01/31/2024 How Many Years Have You Smoked Tobacco? 40 2-4 Packs A Year [id number] Information not available 08/17/2022 Have You Recently Traveled Abroad? No Information not available 01/31/2024 Do You Have Difficulty Walking Or Climbing Stairs? Yes Information not available 01/31/2024 Are You Currently In School? No Information not available 01/31/2024 Do You Have Any Dietary Restrictions? Yes Information not available 01/31/2024 Sex: Female Functional Status Question Answer Note LastModified by Organizat ion Details LastModified Time Do you use any illicit or recreational drugs? No [id number] Information not available 08/17/2022 What is your level of alcohol consumption? None [id number] Information not available 08/17/2022 Are you currently employed? No Information not available 01/31/2024 Do you have transportation difficulties? No Information not available 01/31/2024 Are you able to walk independently without assistance or assistive devices? YESLIMIT Information not available 01/31/2024 Do you have difficulty doing errands alone? No Information not available 01/31/2024 Are you able to care for yourself independently? Yes Information not available 01/31/2024 Do you have difficulty dressing, bathing, grooming, or toileting? No Information not available 01/31/2024 What is your exercise level? Occasional Information not available 01/31/2024 Mental Status Question Answer Note LastModified by Organizat ion Details LastModified Time Do you feel stressed (tense, restless, nervous, or anxious, or unable to sleep at night)? [id number] Having social issues at home w/ spouse. Information not available 01/31/2024 Do you have difficulty concentrating, remembering or making decisions? Yes I can't remember anything. Age related Information not available 01/31/2024 Family History Nothing Reported. Medical History Condition Response BLINDNESS N RHEUMATIC FEVER N KIDNEY STONES N BLADDER PROBLEMS N MRSA N OTHER # 1 N POLIO N LUNG DISEASE/DISORDER N HISTORY OF DRUG ABUSE N RADIATION / CHEMOTHERAPY N COPD N Other # 2 N BLOOD DISEASES N SURGERY N EAR OR HEARING PROBLEMS N MUMPS N SHINGLES N FEMALE PROBLEMS / INFECTIONS N DEPRESSION (INCLUDING POST ) N BOWEL PROBLEMS N FAILED BACK SYNDROME N STROKE/TIA N THYROID DISEASE N ULCERS N BENIGN PROSTATIC HYPERPLASIA N MEASLES Y CERVICALGIA N TB SKIN TEST N HYPOTENSION N MYOCARDIAL INFARCTION N PARAPELGIA N OBESITY N GERD/NAUSEA Y ANEURYSM N URINARY/BLADDER/KIDNEY PROBLEMS N CORONARY ARTERY DISEASE (CAD) N MENIERE'S DISEASE N Do you have Advance directive? N ADDICTION CONCERNS N ENDOMETRIOSIS N USE OF BLOOD THINNERS N SKIN PROBLEMS N EMPHYSEMA N GASTROINTESTINAL DISORDER N PERIPHERAL ARTERY DISEASE N MUSCLE,JOINT OR BONE PROBLEMS N GASTROINTESTINAL BLEEDING N BLOOD CLOTS N ASTHMA N CATARACTS Y Abdominal Pain N ERECTILE DYSFUNCTION N ARTERIAL INSUFFICIENCY N GI PROBLEMS N CHF N Low Testosterone N NEUROPATHY N INFERTILITY N AIDS/HIV N FRACTURES N CHEMOTHERAPY / RADIATION N VISION/EYE PROBLEMS N LIVER DISEASE N HYPERTENSION Y TOURETTE'S N ANXIETY DISORDER N BLOOD TRANSFUSION N ANEMIA/BLOOD DISORDER N CHRONIC EAR INFECTIONS N BRONCHITIS Y TUBERCULOSIS N GLAUCOMA N FOOT PROBLEM N DIVERTICULITIS N SLEEP APNEA N CHICKENPOX N ALLERGIES/HAYFEVER N BACK INJECTIONS N INFECTIOUS DISEASE N PROSTATE N HEART ARRHYTHMIA N ESRD N INSOMNIA N HIGH CHOLESTEROL / HYPERLIPIDEMIA N EYE PROBLEMS Y HYPERTHYROIDISM N PVD N EATING DISORDER N EDEMA N CHRONIC PAIN SYNDROME Y CAROTID BLOCKAGE N CONSTIPATION N BACK / NECK PROBLEMS N HAVE YOU BEEN HOSPITALIZED OR SEEN IN TH E ER IN THE PAST YEAR ? N ATHEROSCLEROSIS N BREAST PROBLEMS N DIALYSIS N POLYCYSTIC OVARIES N ECZEMA N FIBROMYALGIA N OSTEOPOROSIS Y ARTHRITIS N NO SIGNIFICANT PAST MEDICAL HISTORY N APPENDICITIS N DIABETES, TYPE N BAD TEETH N VON WILLIBRAND'S DISEASE N HEARTBURN / REFLUX Y ADD/ADHD N AUTISM SPECTRUM DISORDER (ASD) N POST LAMINECTOMY SYNDROME N HEPATITIS / LIVER DISEASE N PULMONARY DISEASE N GOUT N SLEEP DISORDER N ALZHEIMER'S DISEASE N PAIN N DEMENTIA N HERPES N SEIZURES/EPILEPSY N HEADACHES/MIGRAINES N VASCULAR DISEASE N PACEMAKER N DIZZINESS N KIDNEY DISEASE N HEART DISEASE/HEART PROBLEMS N SCARLET FEVER N MULTIPLE SCLEROSIS N MENTAL DISORDER/ILLNESS N DEVELOPMENTAL OR BEHAVIORAL DISORDERS N NEUROPSYCHOLOGICAL N CANCER: SPECIFY N CARDIAC ARRHYTHMIA N PNEUMONIA N ATRIAL FIBRILLATION N Gall Stones N PULMONARY EMBOLISM N AUTOIMMUNE DISEASE N Gynecological HistoryNo gynecological history recorded. Obstetrics History GPAL:G 2 P 0 0 0 2 Type Value Living 2 Total 2 Immunizations Vaccine Type Date Status Note Provider Nam e and Address Organization Details Recorded Time COVID-19, mRNA, LNP-S, PF, 30 mcg/0.3 mL dose 01/20/2021 completed MARAH Davila, [facility] [email or web address] 01/31/2024 16:45:03 COVID-19, mRNA, LNP-S, PF, 30 mcg/0.3 mL dose 02/10/2021 completed MARAH Davila, MS [facility] [email or web address] 01/31/2024 16:45:03 Past Encounters Encounter ID Performer Location Encounter Start Date Encounter Closed Date Diagnosis/Indication Diagnosis SNOMED-CT Code Diagnosis ICD10 Code Diagnosis IMO Codes Diagnosis Note [id number] Russ Cantu MD [facility] [place] [address] 03/10/2021 00:00:00 03/10/2021 15:15:38 [id number] Russ Cantu MD [facility] [place] [address] 06/29/2021 00:00:00 06/29/2021 21:30:43 [id number] Russ Cantu MD [facility] [place] [address] 07/20/2021 00:00:00 07/20/2021 22:11:21 [id number] Russ Cantu MD [facility] [place] [address] , [place] [address] 07/29/2021 00:00:00 07/29/2021 18:33:00 [id number] Russ Cantu MD [facility] [place] [address] , [place] [address] 10/05/2021 00:00:00 10/05/2021 19:19:46 [id number] Russ Cantu MD [facility] [place] [facility] [address] , [place] [address] 12/29/2021 00:00:00 12/30/2021 05:53:59 [id number] Russ Cantu MD [facility] [place] [facility] [place] [address] 04/11/2022 00:00:00 04/11/2022 15:05:02 [id number] Russ Cantu MD [facility] [place] [facility] [address] [place] [address] 05/09/2022 00:00:00 05/09/2022 13:21:19 [id number] Russ Cantu MD [facility] [place] [facility] [place] [address] 07/08/2022 00:00:00 07/08/2022 17:32:35 [id number] Russ Cantu MD [facility] [place] [facility] [place] [address] 08/08/2022 00:00:00 08/09/2022 06:05:22 [id number] Russ Cantu MD [facility] [place] [address] [place] [address] 09/29/2022 14:26:12 09/29/2022 15:22:30 Type 2 diabetes mellitus without complication 635762138 E11.9 A1C is 7.9% will increase the trulicity to 4.5 mg. Recheck in 3 months. History of gout 76936868 4 Z87.39 Essential hypertension 24367366 I10 Mixed anxi ety and depressive disorder 161111679 F41.8 Osteoarthritis 962708519 M19.90 [id number] Russ Cantu MD [facility] [place] [facility] [place] [address] 01/06/2023 12:00:42 01/06/2023 12:28:39 Type 2 diabetes mellitus without complication 688117099 E11.9 A1C is 6.2% Continue same meds. Continue toujeo as needed. Obesity 533093580 E66.9 Has lost weight. Continue weight loss efforts [id number] Russ Cantu MD [facility] [place] [facility] [place] [address] 04/10/2023 11:41:58 04/10/2023 12:14:42 Type 2 diabetes mellitus without complication 615002659 E11.9 A1C is 6.5% Continue same meds. Still good. Pain of ri ght shoulder joint 8962035524 0514552 M25.511 RICE and heat and analgesic rub. Pain in le ft lower limb 651804103 M79.605 Abnormal urine odor 8769 003 R82.90 [id number] Russ Cantu MD [facility] [place] [address] [place] [address] [place] [address] 07/11/2023 11:54:47 07/11/2023 12:19:45 Essential hypertension 22908152 I10 Gastroesop hageal reflux disease 424904067 K21.9 Type 2 tamara betes mellitus without complication 193125882 E11.9 Bilateral osteoarthritis of knees 8413347771 38346 M17.0 [id number] Ebenezer Benitez MD [facility] [place] [place] [address] 10/10/2023 13:50:10 10/10/2023 14:39:48 Essential hypertension 53720505 I10 Type 2 tamara betes mellitus 31049009 E11.9 Strain of muscle of right shoulder 4340605867 9658441 S46.911D Bilateral osteoarthritis of knees 7721704346 12213 M17.0 Chronic arthritis 105981 07 M13.80 Chronic low back pain 27 9278179 M54.50 Depressive disorder 3548 9007 F32.A Disorder of shoulder 118 171288 M25.819 Gastroesop hageal reflux disease 970765586 K21.9 Neuropathy 768856028 G62 .9 Osteoarthritis 155443633 M19.90 Obesity 206252891 E66.9 Arthritis 5031104 M19.90 [id number] Ebenezer Benitez MD [facility] [facility] [place] [address] 01/09/2024 15:55:05 01/09/2024 16:30:22 Essential hypertension 86430130 I10 Hypertensive disorder 38 846259 I10 Gastroesop hageal reflux disease 005100847 K21.9 Type 2 tamara betes mellitus without complication 342014949 E11.9 Pain of ri ght shoulder joint 3892369855 8947840 M25.511 Acute bronchitis 4218383 2 J20.9 Arthritis 2896021 M19.90 At [facility] risk of nutritional deficit 854222777 Z91.89 Obesity 281090676 E66.9 Chronic arthritis 369375 07 M13.80 Chronic low back pain 27 6977180 M54.50 Depressive disorder 3548 9007 F32.A Mixed anxi ety and depressive disorder 001987422 F41.8 Neuropathy 584810475 G62 .9 Osteoarthritis 310179453 M19.90 [id number] Ebenezer Benitez MD [facility] [place] [address] [place] [address] 01/31/2024 16:36:50 02/12/2024 10:58:56 Type 2 diabetes mellitus 38663122 E11.9 Essential hypertension 26036899 I10 Gastroesop hageal reflux disease 508971115 K21.9 Osteoarthritis 141245941 M19.90 Depressive disorder 3548 9007 F32.A Mixed anxi ety and depressive disorder 326252981 F41.8 [id number] Ebenezer Benitez MD [facility] [address] [facility] [place] [address] 05/09/2024 13:53:26 05/09/2024 14:34:15 Adult health examination 412399947 Z00.00 Screening for disorder 465623631 Z13.9 Type 2 tamara betes mellitus without complication 639203829 E11.9 Sinusitis 36110237 J32.9 Essential hypertension 79115152 I10 Hyperlipidemia 16884363 E78.5 [id number] Ebenezer Benitez MD [address] [address] 06/06/2024 12:00:45 06/06/2024 12:50:24 Arthritis 6289659 M19.90 Bilateral osteoarthritis of knees 8066817375 32096 M17.0 Chronic low back pain 27 8972526 M54.50 Depressive disorder 3548 9007 F32.A Essential hypertension 66365123 I10 Gastroesop hageal reflux disease 950439583 K21.9 Hyperlipidemia 18752815 E78.5 Mixed anxi ety and depressive disorder 158983491 F41.8 Neuropathy 576558094 G62 .9 Obesity 010460812 E66.9 Type 2 tamara betes mellitus without complication 309382295 E11.9 [id number] Ebenezer Benitez MD [address] [address] 06/27/2024 09:54:59 06/27/2024 10:50:51 Hypothyroidism 93090287 E03.9 Hyperlipidemia 20370656 E78.5 Type 2 tamara betes mellitus without complication 962330097 E11.9 [id number] Ebenezer Benitez MD [address] [address] 07/04/2024 11:59:40 07/04/2024 12:40:45 Essential hypertension 87344416 I10 Hyperlipidemia 12205036 E78.5 Arthritis 4625107 M19.90 Bilateral osteoarthritis of knees 5837270668 08138 M17.0 Chronic low back pain 27 4457208 M54.50 Type 2 tamara betes mellitus without complication 424114880 E11.9 Traumatic tear of right supraspinatus tendon 6918223957 6018818 S46.011A Neuropathy 667493467 G62 .9 Mixed anxi ety and depressive disorder 527746270 F41.8 Hypothyroidism 77425919 E03.9 Gastroesop hageal reflux disease 074436072 K21.9 [id number] Ebenezer Benitez MD [address] [address] 08/22/2024 10:27:36 08/22/2024 11:08:47 [id number] Ebenezer Benitez MD [address] [address] 09/10/2024 11:04:51 09/10/2024 11:50:18 Depressive disorder 27703431 F32.A Hypothyroidism 67888013 E03.9 Screening mammography 24 458852 Z12.31 Fatigue 13605300 R53.83 [id number] Ebenezer Benitez MD [address] [address] 09/19/2024 10:29:20 09/19/2024 10:44:02 [id number] Ebenezer Benitez MD [address] [address] 10/08/2024 14:55:28 10/08/2024 15:48:43 Type 2 diabetes mellitus 15843713 E11.9 Essential hypertension 21797366 I10 Hyperlipidemia 07111219 E78.5 Mixed anxi ety and depressive disorder 285811524 F41.8 History of gout 76019502 4 Z87.39 Hypothyroidism 28092075 E03.9 [id number] Ebenezer Benitez MD [facility] [address] [address] 10/17/2024 11:58:05 10/17/2024 13:07:21 [id number] Ebenezer Benitez MD [facility] [address] [address] 10/22/2024 15:02:39 10/28/2024 11:15:28 Aphthous ulcer of mouth 460955451 K12.0 193876 Hypothyroidism 53414934 E03.9 Acute sinusitis 06245197 J01.90 Goals Section Goal Description Progress Status Start Date LastModified by Organization Details LastModified Time Blood Pressure Maintains blood pressure goal as defined by care team None active 2023 Linda Ramirez RN Information not available 01/31/2024 21:28:28 Activities of Daily Living Performs activities of daily living independently or with minimal assistance None active 2023 Lnida Ramirez RN Information not available 01/31/2024 21:30:40 Fall Safety Reports no recent falls and/or fall injuries None active 2023 Linda Ramirez RN Information not available 01/31/2024 21:33:15 Hemoglobin A1C Lowers or maintains hemoglobin A1C (HbA1c) as per care team recommendation (s) [TARGET: less than or equal to 7%] None active 2023 Linda Ramirez RN Information not available 01/31/2024 20:34:35 Exercise Regularly Follows a regular exercise regimen or instructed exercise plan as per care team recommendation (s) None active 2023 Linda Ramirez RN Information not available 01/31/2024 20:34:35 Recreation al Activities Participates in recreational activities None active 2023 Linda Ramirez RN Information not available 01/31/2024 20:34:35 Healthy Weight Maintain a healthy body weight as recommended by your care team None active 2023 Linda Ramirez RN Information not available 01/31/2024 16:08:08 Lipid Levels Maintains normal lipid levels as defined by care team None active 2023 Linda Ramirez RN Information not available 01/31/2024 16:03:22 Follow-up Appointmen t(s) Attends referral and/or follow-up appointment(s) as per care team recommendation (s) None active 2023 Linda Ramirez RN Information not available 01/31/2024 16:07:21 Medication Regimen Follows medication regimen as per care team recommendation (s) None active 2023 Linda Ramirez RN Information not available 01/31/2024 20:34:35 Blood Glucose Maintains blood glucose within target range None active 2023 Linda Ramirez RN Information not available 01/31/2024 20:34:35 Effective Coping Manages life events with effective coping methods None active 2023 Linda Ramirez RN Information not available 01/31/2024 20:34:35 Weight Loss Decreases body weight as per care team recommendation (s) None active 2023 Linda Ramirez RN Information not available 01/31/2024 16:03:22 Adequate Sleep Achieves adequate, well-rested sleep with minimal disruption None active 2023 Linda Ramirez RN Information not available 01/31/2024 20:34:35 Weight Maintenanc e Exhibits stable weight with normal fluctuation None active 2023 Linda Ramirez RN Information not available 01/31/2024 16:03:23 Diet Adherence Follows prescribed or recommended diet None active 2023 Linda Ramirez RN Information not available 01/31/2024 20:34:35 Quality of Life Reports satisfaction with quality of life None active 2023 Linda Ramirez RN Information not available 01/31/2024 16:08:08 Active Range of Motion Demonstrates normal or improved active range of motion as defined by care team None active 2023 Linda Ramirez RN Information not available 01/31/2024 16:05:09 Mobility Maintains or improves baseline mobility and/or moves independently None active 2023 Linda Ramirez RN Information not available 01/31/2024 16:03:23 Family and Social Support Reports family and/or social support needs are met None active 2023 Linda Ramirez RN Information not available 01/31/2024 16:03:23 Decreased Alcohol Consumptio n Reports decreased alcohol consumption as per care team recommendation (s) None active 2023 Linda Ramirez RN Information not available 01/31/2024 16:08:08 Home/Envir onment Safety Reports having a safe environment that promotes independence and prevents injury None active 2023 Linda Ramirez RN Information not available 01/31/2024 16:03:23 Effective Pain Management Reports or exhibits adequate pain relief as determined by appropriate pain scale None active 2023 Linda Ramirez RN Information not available 01/31/2024 16:05:09 Strength and Conditioni ng Achieves improved strength and conditioning as defined by care team None active 2023 Linda Ramirez RN Information not available 01/31/2024 16:03:24 Assistive/ Adaptive Devices Uses assistive/adap tive devices properly and safely as per care team recommendation (s) None active 2023 Linda Ramirez RN Information not available 01/31/2024 16:05:09 Balance Maintains or improves baseline balance None active 2023 Linda Ramirez RN Information not available 01/31/2024 16:05:09 Health Concerns Section Related Observation LastModified by Organization Detai ls LastModified Time None Recorded Concern Status LastModified by Organization Details LastModified Time Type 2 diabetes mellitus without complication Active Linda Ramirez RN Not Available 01/31/2024 20:34:35 Gastroesophageal reflux disease Active Linda Ramirez RN Not Available 01/31/2024 16:08:08 Osteoarthritis Active Linda Ramirez RN Not Availabl e 01/31/2024 16:05:09 Essential hypertension Active Linda Ramirez RN Not Available 01/31/2024 16:07:21 Advance Directives Directive N: Payers Insurance Date Sequence Insurance Name Policy Number Policy Andino Covered Member ID Andino Member ID Guarantor Name 10/28/2024 2 () Patricia Vásquez Elvin [id number] Linda Vásquez [place] 10/17/2024 1 [place] Simona Oconnor [id number] Linda Oconnor Notes Date Note Type Note Provider Name and Address Organization Details Recorded Time 09/10/2024 text/html ROS as noted in the HPI just exhausted . IKE Santoyo [address], [place], [address], [facility] [email or web address] 09/16/2024 17:04:02 10/08/2024 text/html ROS as noted in the HPI vraylar caused facial tremors . left knee hurts ; it feels like past episodes of gout IKE [facility] [address], [place], [address], [facility] [email or web address] 10/19/2024 17:49:50 10/22/2024 text/html ROS as noted in the HPI ulcers in mouth , painful, sinus pressure , no fever IKE Santoyo [address], [place], [address], [place] [facility] [email or web address] 10/27/2024 11:47:12 OBGyn Episode No OBEpisode recorded.
[2025-05-01 16:52] LABS: Toxigenic C. Diff NEGATIVE (NEGATIVE)
[2025-05-04 19:07] LABS: Pancreatic Elastase, Fecal >800 (>200)
[2025-05-06 08:08] LABS: Calprotectin, Fecal 31 ug/g (0-120)
== END 2025-05-01 15:19 | disposition home or self-care (01) ==
LOC: ANHLAB 15:19
PROVIDERS: PCP Internal Medicine; Visit Provider Nurse Practitioner
DX: R11.2 Nausea with vomiting, unspecified (principal); R19.7 Diarrhea, unspecified
CPT/HCPCS: 82653; 83993; 87493

== ENCOUNTER 2025-05-21 14:55 | Outpatient (CLI) | payer MEDICARE, OTHER, SELFPAY ==
--- OUTSIDE RECORDS SUMMARY | 2025-05-21 16:23 | XMS_ITS | Clinical Summary ---
Author Organization [facility] Kiley Blackwelljessica Address [address] [place] [address] [place] [address] Care Team Providers Care Rn Family Practice Name Role Phone Russ Cantu MD Primary Care Provider [phone] Allergies No known active allergies Medications allopurinoL [...] Years Used Date Smoking Tobacco: Former Cigarettes 0 Q uit: 2009 Tobacco Cessation:Counseling Given: Not Answered Alcohol Use Standard Drinks/Week Comments Never 0 (1 standard drink = 0.6 oz pur e alcohol) Comments Unknown Sex and Gender Information Value Date Recorded Sex Assigned at Not on file Legal Sex Female 10:14 AM NEON [employer] Gender Identity Not on file Sexual Orientation [...] 01/04/2033 Insurance MEDICARE PART A AND B [facility] Care Teams Rn Family Practice Relationship Specialty Start Date End Date Russ Cantu MD PCP - General Family Practice 10/18/22
== END 2025-05-21 14:56 | disposition home or self-care (01) ==
LOC: ANHGOSHLAB 14:57
PROVIDERS: PCP Internal Medicine; Visit Provider Otolaryngology
DX: K14.6 Glossodynia (principal); M35.00 Sjogren syndrome, unspecified
CPT/HCPCS: 86235

== ENCOUNTER 2025-05-22 09:39 | Outpatient (CLI) | payer MEDICARE, OTHER, SELFPAY ==
--- OUTSIDE RECORDS SUMMARY | 2024-01-09 06:30 | XMS_ITS ---
Author Organization [facility] Address [address] [place], [place] [phone] Care Team Providers Care Corporate Librarian Name Role Phone Mehran Nails Primary Care Provider Alix Stanton [phone] REASON FOR VISIT 6 month follow up Encounters Encounter Location Date Provider Diagnosis [facility] [address], [address] [place], [place] [id number] 01/09/2024 Alix Perkins PLAN OF TREATMENT No Information History and Physical Notes * HPI (History of Present Illness) Category Sub-Category Detail Notes Category Not es Rheumatology Joint pain Patient presents for follow up for joint pain and positive RF. Patient reports her right shoulder has been really bothering her, she saw her PCP and they recommended heat/cold packs, lidocaine patches, and muscle relaxer but it has not helped or improved at all. Other joint pain has been stable. Left 3rd trigger finger has resolved after trigger finger injection. She has continued on Sulindac and it helps some. Hx of gout in the left knee, treated with colchicine and allopurinol, but has now stopped it and has not had any flares. X-ray 09/2022 of bilateral feet and hands with OA changes. Joint swelling dry eyes dry mouth rash photosensitivity History of gout Psoriasis Oral sores Iritis, conjuctivitis, uveiitis
--- OUTSIDE RECORDS SUMMARY | 2024-10-16 05:00 | XMS_ITS ---
Author Organization [facility] Address [address] [place], [place] [id number] Care Team Providers Care Photography And Prints Curator Name Role Phone Mehran Nails Primary Care Provider Unavailabl e Alix Perkins Unavailable [phone] ALLERGIES Allergen (clinical drug ingredient) Drug/Non Drug Allergy documented on EMR Reaction Allergy Type Onset Date Status vicoden (uncoded) throw up Allergy Ac tive hydromorphone dalodid (uncoded) throw up Allergy Active etodolac etodolac hard to breathe Drug Allergy A ctive diclofenac Voltaren hard to breathe Drug Allergy Active nabumetone Relafen hard to breathe Drug Allergy Active REASON FOR VISIT CE MEDICATIONS Medication SIG (Take, Route, Frequency, Duration) Notes Start Date End Date Status losartan 100 mg 1 tab(s) orally once a day Active ezetimibe 10 mg 1 tab(s) orally once a day Active levothyroxine 25 mcg (0.025 mg) 1 tab(s) orally once a day A ctive metoprolol 25 mg 1 tab(s) orally 2 ti mes a day Active amLODIPine 10 mg 1 tab(s) orally once a day Active allopurinol 100 mg as directed orally Active Trulicity Pen 4.5 mg/0.5 mL as directed subcutaneously once a week Active omeprazole 20 mg 1 cap(s) orally once a day Active VITAL SIGNS BMI 36.11 kg/m2 10/16/2024 Blood pressure systolic 154 mm Hg 10/17/19 25 Blood pressure diastolic 75 mm Hg 025 Heart Rate 71 /min 10/16/2024 Height 65 in 10/16/2024 Weight 217 lbs 10/16/2024 PROCEDURES Procedure Date Ordered Date Performed Result Body Sit e Joint Injection - knee, left 10/16/2024 N/A Tendon - flexor tendon 10/16/2024 N/A Joint Injection - knee, right 10/16/2024 N/A Encounters Encounter Location Date [facility] [address], [address] [place], [place] [id number] 10/16/2024 Alix Perkins Polyarthralgia M25.5 0 ; Pain, joint, knee, right M25.561 ; Pain, joint, knee, left M25.562 ; Trigger finger, left middle finger M65.332 ; Right shoulder pain M25.511 ; USP (current) use of insulin Z79.4 and Rheumatoid factor positive R76.8 ASSESSMENTS Encounter Date Diagnosis Assessment Notes Treatment Notes Treatment Clinical Notes Section Notes 10/16/2024 Polyarthralgia (ICD-10 - M25.50) Polyarthralgia with low positive RF - No evidence of inflammatory arthritis or CTD in the past. Hx of OA - administer bilateral knee IA joint injections. Left 3rd trigger finger - administer steroid injection. Re-evaluate labs - getting labs drawn at PCP office and will have labs faxed to me. Cont Ibuprofen PRN, failed sulindac, mobic, and celebrex. Hx of gout - managed by PCP, on allopurinol. Lab slip given. 10/16/2024 Pain, joint, knee, right (ICD-10 - M25.561) Polyarthralgia with low positive RF - No evidence of inflammatory arthritis or CTD in the past. Hx of OA - administer bilateral knee IA joint injections. Left 3rd trigger finger - administer steroid injection. Re-evaluate labs - getting labs drawn at PCP office and will have labs faxed to me. Cont Ibuprofen PRN, failed sulindac, mobic, and celebrex. Hx of gout - managed by PCP, on allopurinol. Lab slip given. 10/16/2024 Pain, joint, knee, left (ICD-10 - M25.562) Polyarthralgia with low positive RF - No evidence of inflammatory arthritis or CTD in the past. Hx of OA - administer bilateral knee IA joint injections. Left 3rd trigger finger - administer steroid injection. Re-evaluate labs - getting labs drawn at PCP office and will have labs faxed to me. Cont Ibuprofen PRN, failed sulindac, mobic, and celebrex. Hx of gout - managed by PCP, on allopurinol. Lab slip given. 10/16/2024 Trigger finger, left middle finger (ICD-10 - M65.332) Polyarthralgi a with low positive RF - No evidence of inflammatory arthritis or CTD in the past. Hx of OA - administer bilateral knee IA joint injections. Left 3rd trigger finger - administer steroid injection. Re-evaluate labs - getting labs drawn at PCP office and will have labs faxed to me. Cont Ibuprofen PRN, failed sulindac, mobic, and celebrex. Hx of gout - managed by PCP, on allopurinol. Lab slip given. 10/16/2024 Right shoulder pain (ICD-10 - M25.511) Polyarthralgia with low positive RF - No evidence of inflammatory arthritis or CTD in the past. Hx of OA - administer bilateral knee IA joint injections. Left 3rd trigger finger - administer steroid injection. Re-evaluate labs - getting labs drawn at PCP office and will have labs faxed to me. Cont Ibuprofen PRN, failed sulindac, mobic, and celebrex. Hx of gout - managed by PCP, on allopurinol. Lab slip given. 10/16/2024 intermodal customer service (current) use of insulin (ICD-10 - Z79.4) Polyarthralgia with low positive RF - No evidence of inflammatory arthritis or CTD in the past. Hx of OA - administer bilateral knee IA joint injections. Left 3rd trigger finger - administer steroid injection. Re-evaluate labs - getting labs drawn at PCP office and will have labs faxed to me. Cont Ibuprofen PRN, failed sulindac, mobic, and celebrex. Hx of gout - managed by PCP, on allopurinol. Lab slip given. 10/16/2024 Rheumatoid factor positive (ICD-10 - R76.8) Polyarthralgia with low positive RF - No evidence of inflammatory arthritis or CTD in the past. Hx of OA - administer bilateral knee IA joint injections. Left 3rd trigger finger - administer steroid injection. Re-evaluate labs - getting labs drawn at PCP office and will have labs faxed to me. Cont Ibuprofen PRN, failed sulindac, mobic, and celebrex. Hx of gout - managed by PCP, on allopurinol. Lab slip given. PLAN OF TREATMENT Medication Medication Name Sig Start Date Stop Date Notes losartan 100 mg 1 tab(s) orally once a day ezetimibe 10 mg 1 tab(s) orally once a day levothyroxine 25 mcg (0.025 mg) 1 tab(s) orally once a day metoprolol 25 mg 1 tab(s) orally 2 times a day amLODIPine 10 mg 1 tab(s) orally once a day allopurinol 100 mg as directed orally Trulicity Pen 4.5 mg/0.5 mL as directed subcutaneously once a week omeprazole 20 mg 1 cap(s) orally once a day Pending Test Test Name Order Date Sed Rate - Westergren 10/16/2024 C-Reactive Protein, Quant 10/16/2024 CCP IgG Antibodies 10/16/2024 Joint Injection - knee, left 10/16/2024 Tendon - flexor tendon 10/16/2024 Joint Injection - knee, right 10/16/2024 Next Appt Details Follow Up: 3 Months, Reason: Procedure Notes * Category Sub-Category Detail Notes Injection Site Bilateral Knees , left , flexor tendon Drug Injected Xylocaine [facility]: 05832 -[id number] lot # [id number] exp: 08/14 , Triamcinalone Acetonide [facility] [id number] LOT: [id number] EXP: 2025-10 Dose 2mL , 20 mg x2 IA , 10 mgx1 IA Note Site was prepped and cleaned, needle inserted without difficulty, patient tolerated procedure well, without any complications Progress Notes * Examination Category Sub-Category Detail Notes Category Not es General Constitutional: No acute distress HEENT: Neck supple, Normal sclerae and conjunctivae Cardiovascular Normal peripheral pu lsations, No edema Abdomen: soft, no organomegal y or masses /Rectal: not done Skin: No cutaneous lesions . No subcutaneous nodules noted in the 4 extremities Neurological: No focal neurologica l findings Heme/Lymphatic: No cervical, axillar y, or inguinal adenopathy Psych: Alert, oriented x 3, Normal affect Musculoskeletal: Normal strength. No muscle atrophy Joint Exam Shoulders No swelling. No tenderness. NROM. Elbows No swelling. No tend erness. NROM. Wrists No swelling. No tend erness. NROM. Hips No tenderness, jeanette l ROM, no instability or deformity Knees No swelling, no tend erness, NROM. No instability or deformity Ankles No swelling, no tend erness, NROM., No instability or deformity. All MCPs No swelling, no tend erness, no deformity unless noted below. All PIPs No swelling, no tend erness, no deformity unless noted below. All DIPs No swelling, no tend erness, no deformity unless noted below. All MTPs No swelling, no tend erness, NROM, no deformity unless noted below. History and Physical Notes * HPI (History of Present Illness) Category Sub-Category Detail Notes Category Not es Rheumatology Joint pain Patient presents to [facility]. She was last seen 06/2023 for treatment of OA. She has hx of low positive RF, but no evidence of inflammatory arthritis in the past. She reports joint pain in her hands and knees. She denies joint swelling. Currently dealing with a left 3rd trgger finger, prior steroid injection helped and she would like a nother one today. She reports losing 50lbs in the last year, but it hasn't helped her joint pain, she wonders if she can get knee injections today. In the past knee injections helped. She has been told she needed a knee replacement. She would like to avoid it due to prior surgical complications with right knee mensicus surgery. Hx of gout - had a recent left knee flare, restarted on allopurinol and treated with colchicine which helped. NSAIDs help with joint pain but lose efficacy, she failed mobic, sulindac, and celebrex, currently using ibuprofen 600mg BID PRN for pain and it helps some. Denies recent fevers/infections, rashes, or mouth sores. Joint swelling dry eyes dry mouth rash photosensitivity History of gout Psoriasis Oral sores Iritis, conjuctivitis, uveiitis Physical Examination Category Sub-Category Detail Notes Section Note s MDHAQ Summary Function (0-10):: 2.7 Pain (0-10):: 5 Patient Global Assessment of Disease Activity (0 -10):: 6 RAPID3 Score (0-30):: 13.7 Physician Global Assessment of Disease Activity (0-10):: 3 Prognosis Good w/tx Erosive Damage No
--- OUTSIDE RECORDS SUMMARY | 2024-10-16 05:05 | XMS_ITS ---
Author Organization [facility] Address [address] [place], [place] [id number] Care Team Providers Care Sagger Preparer Name Role Phone Mehran Nails Primary Care Provider Unavailabl Alix Downey Unavailable [phone] Encounters Encounter Location Date Provider Diagnosis [facility] [address], [address] [place], [place] [id number] 10/16/2024 Alix Perkins PLAN OF TREATMENT No Information
--- OUTSIDE RECORDS SUMMARY | 2025-01-08 06:50 | XMS_ITS ---
Author Organization [facility] Address [address] [place], [place] [id number] Care Team Providers Care Voltage Inspector Name Role Phone Mehran Nails Primary Care Provider Unavailabl Alix Downey Unavailable [phone] REASON FOR VISIT r/s 02/09 Encounters Encounter Location Date Provider Diagnosis [facility] [address], [facility] [address] [place], [place] [phone] 01/08/2025 Alix Perkins PLAN OF TREATMENT No Information
--- OUTSIDE RECORDS SUMMARY | 2025-01-09 05:20 | XMS_ITS ---
Author Organization [facility] Address [address] [place], [place] [id number] Care Team Providers Care Mainframe Software Developer Name Role Phone Mehran Nails Primary Care Provider Unavailabl kaitlynn Alix Perkins Unavailable [phone] ALLERGIES Allergen (clinical drug ingredient) Drug/Non Drug Allergy documented on EMR Reaction Allergy Type Onset Date Status vicoden (uncoded) throw up Allergy Ac tive hydromorphone dalodid (uncoded) throw up Allergy Active etodolac etodolac hard to breathe Drug Allergy A ctive diclofenac Voltaren hard to breathe Drug Allergy Active nabumetone Relafen hard to breathe Drug Allergy Active REASON FOR VISIT Patient presents for scheduled rheumatology follow up MEDICATIONS Medication SIG (Take, Route, Frequency, Duration) Notes Start Date End Date Status ezetimibe 10 mg 1 tab(s) orally once a day Active amLODIPine 10 mg 1 tab(s) orally once a day Active losartan 100 mg 1 tab(s) orally once a day Active levothyroxine 25 mcg (0.025 mg) 1 tab(s) orally once a day Active metoprolol 25 mg 1 tab(s) orally 2 ti mes a day Active omeprazole 20 mg 1 cap(s) orally once a day Active allopurinol 100 mg as directed orally Active Toujeo insulin 100 units/mL Ac tive Trulicity Pen 4.5 mg/0.5 mL as directed subcutaneously once a week Active VITAL SIGNS BMI 35.27 kg/m2 01/09/2025 Blood pressure systolic 136 mm Hg 01/10/20 25 Blood pressure diastolic 69 mm Hg 025 Heart Rate 67 /min 01/09/2025 Height 65 in 01/09/2025 Weight 212 lbs 01/09/2025 Encounters Encounter Location Date Provider Diagnosis [facility] [address] [place], [place] [id number] 01/09/2025 Alix Perkins Polyarthralgia M25.5 0 ; Rheumatoid factor positive R76.8 ; Pain, joint, knee, right M25.561 ; Pain, joint, knee, left M25.562 ; Trigger finger, left middle finger M65.332 ; Right shoulder pain M25.511 and assistant terminal manager (current) use of insulin Z79.4 ASSESSMENTS Encounter Date Diagnosis Assessment Notes Treatment Notes Treatment Clinical Notes Section Notes 01/09/2025 Polyarthralgia (ICD-10 - M25.50) Polyarthralgia with low positive RF - No evidence of inflammatory arthritis or CTD in the past. Hx of OA - last IA joint injection only helped for 2 weeks, has been told she needs knee replacement but she would like to avoid it. Left 3rd trigger finger - resolved with steroid injection. Had labs done with PCP and will have results faxed to me. Cont Ibuprofen PRN, failed sulindac, mobic, and celebrex. Hx of gout - managed by PCP, on allopurinol and colchicine. Fall - if low back and hip pain does not improved recommend getting x-rays, she would like to hold off for now. 01/09/2025 Rheumatoid factor positive (ICD-10 - R76.8) Polyarthralgia with low positive RF - No evidence of inflammatory arthritis or CTD in the past. Hx of OA - last IA joint injection only helped for 2 weeks, has been told she needs knee replacement but she would like to avoid it. Left 3rd trigger finger - resolved with steroid injection. Had labs done with PCP and will have results faxed to me. Cont Ibuprofen PRN, failed sulindac, mobic, and celebrex. Hx of gout - managed by PCP, on allopurinol and colchicine. Fall - if low back and hip pain does not improved recommend getting x-rays, she would like to hold off for now. 01/09/2025 Pain, joint, knee, right (ICD-10 - M25.561) Polyarthralgia with low positive RF - No evidence of inflammatory arthritis or CTD in the past. Hx of OA - last IA joint injection only helped for 2 weeks, has been told she needs knee replacement but she would like to avoid it. Left 3rd trigger finger - resolved with steroid injection. Had labs done with PCP and will have results faxed to me. Cont Ibuprofen PRN, failed sulindac, mobic, and celebrex. Hx of gout - managed by PCP, on allopurinol and colchicine. Fall - if low back and hip pain does not improved recommend getting x-rays, she would like to hold off for now. 01/09/2025 Pain, joint, knee, left (ICD-10 - M25.562) Polyarthralgia with low positive RF - No evidence of inflammatory arthritis or CTD in the past. Hx of OA - last IA joint injection only helped for 2 weeks, has been told she needs knee replacement but she would like to avoid it. Left 3rd trigger finger - resolved with steroid injection. Had labs done with PCP and will have results faxed to me. Cont Ibuprofen PRN, failed sulindac, mobic, and celebrex. Hx of gout - managed by PCP, on allopurinol and colchicine. Fall - if low back and hip pain does not improved recommend getting x-rays, she would like to hold off for now. 01/09/2025 Trigger finger, left middle finger (ICD-10 - M65.332) Polyarthralgi a with low positive RF - No evidence of inflammatory arthritis or CTD in the past. Hx of OA - last IA joint injection only helped for 2 weeks, has been told she needs knee replacement but she would like to avoid it. Left 3rd trigger finger - resolved with steroid injection. Had labs done with PCP and will have results faxed to me. Cont Ibuprofen PRN, failed sulindac, mobic, and celebrex. Hx of gout - managed by PCP, on allopurinol and colchicine. Fall - if low back and hip pain does not improved recommend getting x-rays, she would like to hold off for now. 01/09/2025 Right shoulder pain (ICD-10 - M25.511) Polyarthralgia with low positive RF - No evidence of inflammatory arthritis or CTD in the past. Hx of OA - last IA joint injection only helped for 2 weeks, has been told she needs knee replacement but she would like to avoid it. Left 3rd trigger finger - resolved with steroid injection. Had labs done with PCP and will have results faxed to me. Cont Ibuprofen PRN, failed sulindac, mobic, and celebrex. Hx of gout - managed by PCP, on allopurinol and colchicine. Fall - if low back and hip pain does not improved recommend getting x-rays, she would like to hold off for now. 01/09/2025 senior living (current) use of insulin (ICD-10 - Z79.4) Polyarthralgia with low positive RF - No evidence of inflammatory arthritis or CTD in the past. Hx of OA - last IA joint injection only helped for 2 weeks, has been told she needs knee replacement but she would like to avoid it. Left 3rd trigger finger - resolved with steroid injection. Had labs done with PCP and will have results faxed to me. Cont Ibuprofen PRN, failed sulindac, mobic, and celebrex. Hx of gout - managed by PCP, on allopurinol and colchicine. Fall - if low back and hip pain does not improved recommend getting x-rays, she would like to hold off for now. PLAN OF TREATMENT Medication Medication Name Sig Start Date Stop Date Notes ezetimibe 10 mg 1 tab(s) orally once a day amLODIPine 10 mg 1 tab(s) orally once a day losartan 100 mg 1 tab(s) orally once a day levothyroxine 25 mcg (0.025 mg) 1 tab(s) orally once a day metoprolol 25 mg 1 tab(s) orally 2 ti mes a day omeprazole 20 mg 1 cap(s) orally once a day allopurinol 100 mg as directed orally Toujeo insulin 100 units/ mL Trulicity Pen 4.5 mg/0.5 mL as directed subcutaneously once a week Next Appt Details Follow Up: 3 Months, Reason: Progress Notes * Examination Category Sub-Category Detail [...] pain Patient presents for follow up for treatment of OA. She has hx of low positive RF, but no evidence of inflammatory arthritis in the past. Knee injections from last visit only helped for two weeks. Trigger finger injection really helped. She has been told she needed a knee replacement. She would like to avoid it due to prior surgical complications with right knee mensicus surgery. Had a fall last Monday and injured her low back and hips - has not had x-rays done. She reports losing 50lbs in the last year. Hx of gout - recently resumed allopurinol and colchicine after having a flare in her knee. NSAIDs help with joint pain but lose efficacy, she failed mobic, sulindac, and celebrex, currently using ibuprofen 600mg BID PRN for pain and it helps some. Joint swelling dry eyes dry mouth rash photosensitivity History of gout Psoriasis Oral sores Iritis, conjuctivitis, uveiitis Physical Examination Category Sub-Category Detail Notes Section Note s MDHAQ Summary Function (0-10):: 4 Pain (0-10):: 8 Patient Global Assessment of Disease Activity (0 -10):: 5 RAPID3 Score (0-30):: 17 Physician Global Assessment of Disease Activity (0-10):: 2 Prognosis Good w/tx Erosive Damage No
--- OUTSIDE RECORDS SUMMARY | 2025-01-09 05:30 | XMS_ITS ---
Author Organization [facility] Address [address] [place], [place] [id number] Care Team Providers Care Disease Intervention Specialist Name Role Phone Mehran Nails Primary Care Provider Unavailabl Alix Downey Unavailable [phone] Encounters Encounter Location Date Provider Diagnosis [facility] [address], [address] [place], [place] [id number] 01/09/2025 Alix Perkins PLAN OF TREATMENT No Information
--- OUTSIDE RECORDS SUMMARY | 2025-04-08 05:20 | XMS_ITS ---
Author Organization [facility] Address [address] [place], [place] [id number] Care Team Providers Care Architectural Draftsman Name Role Phone Mehran Nails Primary Care Provider Unavailabl kaitlynn Alix Perkins Unavailable [phone] ALLERGIES Allergen (clinical drug ingredient) Drug/Non Drug Allergy documented on EMR Reaction Allergy Type Onset Date Status vicoden (uncoded) throw up Allergy Ac tive hydromorphone dalodid (uncoded) throw up Allergy Active etodolac etodolac hard to breathe Drug Allergy A ctive diclofenac Voltaren hard to breathe Drug Allergy Active nabumetone Relafen hard to breathe Drug Allergy Active REASON FOR VISIT 3 mo f/u MEDICATIONS Medication SIG (Take, Route, Frequency, Duration) Notes Start Date End Date Status levothyroxine 25 mcg (0.025 mg) 1 tab(s) orally once a day Active amLODIPine 10 mg 1 tab(s) orally once a day Active metoprolol 25 mg 1 tab(s) orally 2 ti mes a day Active ezetimibe 10 mg 1 tab(s) orally once a day Active losartan 100 mg 1 tab(s) orally once a day Active Trulicity Pen 4.5 mg/0.5 mL as directed subcutaneously once a week Active Toujeo insulin 100 units/mL Ac tive allopurinol 100 mg as directed orally Active omeprazole 20 mg 1 cap(s) orally once a day Active Encounters Encounter Location Date Provider Diagnosis [facility] [address] [place], [place] [id number] 04/08/2025 Alix Perkins PLAN OF TREATMENT No Information
--- NOTE | ~2025-05-22 | CT_ITS ---
CT abdomen pelvis w con INDICATION:abdominal pain, nausea/vomiting and diarrhea . COMPARISON: 05/22/2020 gastrohepatic, periportal and portacaval lymph nodes are stable. TECHNIQUE: Axial images of the abdomen and pelvis were obtained following infusion of 100 mL Isovue 300. Dose optimization technique was utilized. FINDINGS: The lung bases are clear. The liver parenchyma is unremarkable. No intrahepatic mass or ductal dilatation is evident. The gallbladder is unremarkable. The pancreas and spleen are normal in appearance. The adrenal glands are symmetric in size. The kidneys demonstrate symmetric uptake and excretion of contrast. No cystic mass is evident. There is no solid mass. There is no hydronephrosis. The stomach and bowel loops are unremarkable. The appendix is normal in appearance. There is colonic diverticulosis without evidence of acute diverticulitis. The bladder and rectum are normal. No free intraperitoneal fluid or air is evident. There is no significant retroperitoneal lymphadenopathy. The aorta, visceral vessels and renal arteries demonstrate normal caliber and patency. The lower thoracic and lumbar vertebrae are in normal alignment. IMPRESSION: No acute abnormality is noted in the abdomen and pelvis. Diverticulosis without evidence of acute diverticulitis. Periportal, gastrohepatic and portacaval lymph nodes are stable. All CT scans at this facility are performed using low dose modulation techniques as appropriate to perform exam including the following: automated exposure control; use of iterative reconstruction technique; adjustment of the mA and/or kV according to patient size (this includes techniques or standardized protocols for targeted exams where dose is matched to indication/reason for exam). Reviewed, dictated and finalized at location S. TS PHYSICAL THERAPIST IMPRESSION: No acute abnormality is noted in the abdomen and pelvis. Diverticulosis without evidence of acute diverticulitis. Periportal, gastrohepatic and portacaval lymph nodes are stable. All CT scans at this facility are performed using low dose modulation techniqu es as appropriate to perform exam including the following: automated exposure c ontrol; use of iterative reconstruction technique; adjustment of the mA and/or kV according to patient size (this includes techniques or standardized protocol s for targeted exams where dose is matched to indication/reason for exam).
[2025-05-22 10:19] LABS: Estimated Glomerular Filt Rate > 60
--- OUTSIDE RECORDS SUMMARY | 2025-05-22 10:30 | XMS_ITS | Patient Health Record ---
Author Organization [facility] Address [address] [place], [place] [id number] Care Team Providers Care Salvager Name Role Phone Mehran Nails Primary Care Provider Unavailabl e NikAlix vides Unavailable [phone] ALLERGIES Allergen (clinical drug ingredient) Drug/Non Drug Allergy documented on EMR Reaction Allergy Type Onset Date Status vicoden (uncoded) throw up Allergy Ac tive hydromorphone dalodid (uncoded) throw up Allergy Active etodolac etodolac hard to breathe Drug Allergy A ctive diclofenac Voltaren hard to breathe Drug Allergy Active nabumetone Relafen hard to breathe Drug Allergy Active REASON FOR REFERRAL No Information MEDICATIONS Medication SIG (Take, Route, Frequency, Duration) [...] 1 cap(s) orally once a day Active PROBLEMS Problem Type ICD Code Onset Dates Problem Status W/U Status Risk SNOMED Code Notes Problem Osteoarthrosis (715.09) Active confirmed Osteoarthrosis (225356274) Problem MONITOR MED (V58.69) Active confirmed Long-term drug therapy (256603088) Problem Essential hypertension (I10) Active confirmed 08353539 Problem Arthralgia of multiple sites (M25.50) Active confirmed 54962499 Problem Primary generalized (osteo)arthritis (M15.0) Active confirmed Primary generalised osteoarthritis (939546103) Problem 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) Active confirmed 899176241 Problem Rheumatoid factor positive (R76.8) Active confirmed 512403214 Problem Type 2 diabetes mellitus without complications (E11.9) Active confirmed Type II diabete s mellitus without complication (189021807) Problem 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, [address] [id number] 10/16/2024 Alix Fainova [facility] Polyarthralgia M25.5 0 ; Pain, joint, knee, right M25.561 ; Pain, joint, knee, left M25.562 ; Trigger finger, left middle finger M65.332 ; Right shoulder pain M25.511 ; terminal worker (current) use of insulin Z79.4 and Rheumatoid factor positive R76.8 [facility] [address] [place], [place] [id number] 01/08/2025 Alixra Shelley [facility], [facility] [address] [place], [place] [id number] 01/09/2025 Alix Fainova [facility] Polyarthralgia M25.5 0 ; Rheumatoid factor positive R76.8 ; Pain, joint, knee, right M25.561 ; Pain, joint, knee, left M25.562 ; Trigger finger, left middle finger M65.332 ; Right shoulder pain M25.511 and snf (current) use of insulin Z79.4 [facility] [address] [place], [place] [id number] 04/08/2025 [facility] [address] [facility] [address] [place], [place] [id number] 10/16/2024 [facility] [address] [place], [place] [id number] 01/09/2025 [facility] ASSESSMENTS Encounter Date Diagnosis Assessment Notes Treatment [...] by PCP, on allopurinol. Lab slip given. 01/09/2025 Rheumatoid factor positive (ICD-10 - R76.8) [...] like to hold off for now. 01/09/2025 Polyarthralgia (ICD-10 - M25.50) Polyarthralgia with [...] would like to hold off for now. 10/16/2024 Pain, joint, knee, left (ICD-10 - [...] by PCP, on allopurinol. Lab slip given. 01/09/2025 Pain, joint, knee, right (ICD-10 - [...] would like to hold off for now. 10/16/2024 Trigger finger, left middle finger (ICD-10 [...] by PCP, on allopurinol. Lab slip given. 01/09/2025 Pain, joint, knee, left (ICD-10 - [...] would like to hold off for now. 10/16/2024 Right shoulder pain (ICD-10 - M25.511) [...] by PCP, on allopurinol. Lab slip given. 01/09/2025 Trigger finger, left middle finger (ICD-10 [...] would like to hold off for now. 10/16/2024 terminal worker (current) use of insulin (ICD-10 - Z79.4) [...] by PCP, on allopurinol. Lab slip given. 01/09/2025 Right shoulder pain (ICD-10 - M25.511) [...] would like to hold off for now. 10/16/2024 Rheumatoid factor positive (ICD-10 - R76.8) [...] by PCP, on allopurinol. Lab slip given. 01/09/2025 terminal worker (current) use of insulin (ICD-10 - Z79.4) [...] hold off for now. PLAN OF TREATMENT Pending Test Test Name Order Date Creatinine, Serum 06/18/2019 Creatinine, Serum 10/11/2019 ALT (SGPT) 10/11/2019 CBC With Differential/Platelet 0 Sed Rate - Westergren 03/06/2020 Sed Rate - Westergren 10/11/2019 Sed Rate - Westergren 10/16/2024 Rheumatoid Arthritis Factor 03/06/2020 C-Reactive Protein, Quant 10/11/2019 C-Reactive Protein, Quant 10/16/2024 C-Reactive Protein, Quant 03/06/2020 CCP IgG Antibodies 10/16/2024 CCP IgG Antibodies 03/06/2020 Comp. Metabolic Panel (14) 03/06/2020 VITAMIN D, 25-HYDROXY, LC/MS/MS 10/11/19 20 HEMOGLOBIN A1c 03/06/2020 Joint Injection - knee, left 10/16/2024 Tendon - flexor tendon 12/14/2022 Tendon - flexor tendon 10/16/2024 X ray : Hand left- outside order 019 X ray : Hand right- outside order 2018 Joint Injection - CMC, RIGHT 06/07/2019 Joint Injection - knee, right 10/16/2024 Eye exam - Plaquenil 10/11/2019 X ray : Shoulder, right- outside order 0 06/27/2023 Lab slip given 03/06/2020 Lab slip given 09/03/2020 Lab slip given 10/11/2019 DS DNA ANTIBODY, CRITHIDIA, IFA W/REFL Q UEST 12/14/2022 Insurance Providers Payer Name Payer Address Payer Phone Subscriber Number Group Number Insured Name Patient Relationship to Insured Coverage Start Date Coverage End Date MEDICARE [address] [address] [place] [phone] [id number] Simona Oconnor Self - patient is the insured 3 [address] [address] [place] [address] [id number] Simona Oconnor Linda Self - patient is the insured 3 MEDICAL (GENERAL) HISTORY Medical History History ICD Code Tension headaches hayfever sinus problems dizziness high blood pressure swelling of ankles/feet indigestion Hot Flashes measeles chicken pox pneumonia bruises easily sores that won't heal diabetes bowel changes constipation hemorrhoids diarrhea emphysema frequent urination cataracts thyroid disease depression Lack of bladder control Surgical History Surgery Date(Month/Year) Lumpectomy 1992 Rotational flap 2018 Knee surgery (7) 2019 Hysterectomy 1996 Hospitalization History Reason Date(Month/Year) Ankle 2000 Arm 1967 Head injury
--- OUTSIDE RECORDS SUMMARY | 2025-05-22 10:31 | XMS_ITS | Clinical Summary ---
Author Organization [facility] Kiley Blackwelljessica Address [address] [place] [address] [place] [address] Care Team Providers Care Clamshell Operator Name Role Phone Rsus Cantu MD Primary Care Provider [phone] Allergies No known active allergies Medications allopurinoL [...] on file Legal Sex Female 10:14 AM VP PRODUCTION Gender Identity Not on file Sexual Orientation [...] 01/04/2033 Insurance MEDICARE PART A AND B [facility] Care Teams Clamshell Operator Relationship Specialty Start Date End Date Russ Cantu MD PCP - General Family Practice 10/18/22
== END 2025-05-22 09:40 | disposition home or self-care (01) ==
PROVIDERS: PCP Internal Medicine; Visit Provider Nurse Practitioner
DX: K57.90 Diverticulosis of intestine, part unspecified, without perforation or abscess without bleeding (principal)
CPT/HCPCS: 74177; Q9967